=== PATIENT | male | born 1955 | race Caucasian/White ===

== ENCOUNTER 2022-02-23 00:21 | Inpatient (IN) ==
--- NOTE | 2022-02-23 00:45 | Emergency Department Note ---
Impression & Plan Acute UTI, Weakness, Fall Admit to the [facility] ED Provider Note NAME: TATUM STEWART AGE: 66 SEX: M ARRIVES VIA: Ambulance INFORMANT: ED PROVIDER(S): Nasreen Centeno DO CHIEF COMPLAINT: Fall and weakness PLAN: Disposition: Admit to [facility] Condition: Fair MEDICAL DECISION MAKING: This is a 66-year-old male patient with history of dementia who suffered a fall at home today. EMS was called and he was transported here. In route to the emergency department, the patient complained of some low back pain. Upon arrival here in the emergency department, the patient seemed to be more somnolent than usual according to the . She describes increasing lower extremity weakness over the past couple of days along with decreased oral intake. She states that he has been in bed mostly over the past 2 days which is unusual for him. CT scan of the brain was unremarkable. Laboratory studies were essentially negative except for evidence of urinary tract infection. The patient was treated with some IV crystalloid therapy for clinical dehydration and he was given a dose of IV Rocephin. Initial plan was to discharge the patient home with his on oral antibiotics but the patient seemed to have profound weakness and nursing staff did not feel comfortable that the patient could be safely discharged home with his . They felt he was at risk to fall again. I discussed the case with Dr. Coleman and he will evaluate the patient for further inpatient care. Triage Nursing notes reviewed and agree with them. Additional history obtained from EMS Prior medical records reviewed Vital Signs: reviewed and unremarkable Differential diagnosis: Head injury, dehydration, hyperglycemia, hypoglycemia, CVA, intracranial hemorrhage, UTI ER treatment provided: IV normal saline bolus IV Rocephin Diagnostics interpreted by me: ECG: Normal sinus rhythm at a rate of [address] segment elevation or signs of ischemia. There is no ectopy. Cardiac Monitoring: Normal sinus rhythm at 74 Laboratory studies: See below Imaging studies: As per stat rad CT HEAD: Mild cerebral atrophyand periventricular white matter lowdensityconsistent with chronic small vessel disease. There is no evidence of acute large vessel infarct or intracranial hemorrhage. The brain is otherwise unremarkable. The paranasal sinuses and mastoid air cells are normal. There is no skull fracture or scalp hematoma. Consultation(s): None HPI: 66/M arrives for evaluation of fall. EMS was called to this patient's house tonight because he fell to the floor in the bathroom. The states that over the past couple of days his lower extremities have become increasingly weak. She states that he has had decreased oral intake and has been in bed primarily over the past 2 days sleeping. This is unusual for him. However, she describes increased involuntary movements of his lower extremities and hips for which he has a follow-up appointment scheduled with neurology at [facility] on March 14. She also describes some fasciculations underneath of his skin that are increasing in frequency. ROS: See above HPI for pertinent positives & negatives. A total of 10 systems reviewed and were otherwise negative. PAST MEDICAL HISTORY:See Below PAST SURGICAL HISTORY:See Below FAMILY HISTORY:See Below SOCIAL HISTORY:See Below HOME MEDICATIONS:See list ALLERGIES:See list VITALS:See Below PHYSICAL EXAMINATION: HEENT: Head - normocephalic and atraumatic. Pupils are equal, round, and reactive to light. Extraocular eye muscles are intact and sclera are anicteric. Nose - moist nasal mucosa without discharge. Mouth -extremely dry buccal mucosa. Oropharynx is nonerythematous and there is no tonsillar exudate or edema noted. Neck: Supple; no JVD or cervical lymphadenopathy Heart: Regular rate and rhythm. There is a normal S1 and S2 with no murmurs, clicks, or gallops appreciated. Lungs: Clear to auscultation bilaterally with no wheezes, rales, or rhonchi. Abdomen: Soft, completely nontender, nondistended, with good bowel sounds. There are no palpable pulsatile masses or hepatosplenomegaly. There is no guarding, rigidity, or rebound noted. Extremities: No evidence of cyanosis, clubbing, or edema. There are easily pa lpable peripheral pulses. Neuro:The patient is extremely lethargic and easily falls asleep. He will open his eyes when you call his name. He will follow commands but slowly. He does move all 4 extremities. Skin: The patient has feces about his skin ED COURSE: Times/Reassessments: 0035: The patient was evaluated in room B7. Laboratory studies were drawn as above. The patient was bolused with IV normal saline solution. An order was placed for continuous cardiac monitoring. The patient was in a normal sinus rhythm at a rate of 74. A twelve-lead EKG was obtained. The patient will go for CT scan of the brain. A urine specimen was obtained. I reviewed the results of the CT and laboratory studies with the patient and his . The patient was given a dose of IV Rocephin. The initial plan was for the patient to go home but nursing staff had difficulty ambulating the patient as he was so weak. I then discussed the case with the [facility] hospitalist and they will evaluate for further inpatient care. Nasrene Centeno DO Past Med/Surg History Medical History (Updated 02/23/22 @ 05:43 by Nasreen Centeno DO) Cardiac defibrillator in place (2009) Cardiomyopathy NONISCHEMIC, S/P AICD PLACED IN 2009. Dementia IS THE PERSON WHOM TO SPEAK TO. STATES HE GETS VERY UPSET WITH SOMEONE ASKING QUESTIONS. BEHAVIORIAL VARIANCE FRONTAL TEMPORAL-F/U DR GONZALEZ; Essential tremor BOTH HANDS - STATES HAS DIFFICULTY HOLDING ONTO THINGS GERD (gastroesophageal reflux disease) History of colon polyps History of melanoma Left Arm Hyperlipidemia Hypertension ICD (implantable cardioverter-defibrillator) in place [employer]. LAST INTERROGATION 09/22/19. NORMAL FUNCTION. STABLE PACING AND SENSING THRESHOLDS. NO SHOCKS. Osteoarthritis Pacemaker (2009) Parkinsonism D/T FRONTAL DEMENTIA; SHUFFLES FEET WITH WALKING AND STUMBLES - USES WALKING STICK Postural hypotension STATES HE GETS DIZZY WHEN STANDING Surgical History (Updated 09/13/21 @ 09:15 by Debra Oscar, JENNIFER) History of anesthesia reaction PER PATIENT'S , PT GETS VERY CONFUSED AND IS SLOW TO WAKE UP History of cardiac cath MULTIPLE. NO STENTS. LAST HEART CATH ~2014. History of colonoscopy (08/20/18) History of left inguinal hernia repair (05/26/19) History of prostate biopsy (08/02/21) Dr. Francisco Gardiner at [facility] Hx of melanoma excision (2011) Left Arm Presence of combination internal cardiac defibrillator (ICD) and pacemaker (2009) PLACED 2009. [employer]. Family History (Updated 09/13/21 @ 09:17 by Debra Oscar, JENNIFER) Father , Passed at 60 Melanoma Mother , Passed Age 90's No problems noted. Sister No problems noted. Brother No problems noted. Son Melanoma, Onset Age: 22 pre-cancerous area removed Daughter No problems noted. 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 How many Children do You have: 2 other: patient with history of dementia Feels Safe at Home: Yes Childhood Exposure to Second-Hand Smoke: Yes caffeine: Yes (coffee in AM) during the past year weight has: remained stable Dental Care, Regularly: No Assistive Devices: Glasses Allergies Allergies Allergy/AdvReac Type Severity Reaction Status Date / Time latex Allergy Intermediate RASH Verified 02/23/22 00:49 haloperidol AdvReac Intermediate PSYCHOSIS Verified 02/23/22 00:49 lactose AdvReac Intermediate GI UPSET Verified 02/23/22 00:49 WITH MILK PRODUCTS midazolam AdvReac Intermediate PSYCHOSIS Verified 02/23/22 00:49 risperidone AdvReac Intermediate HALLUCINATI Verified 02/23/22 00:49 ON Home Meds Home Medications Medication Instructions Recorded Confirmed atorvastatin 20 mg tablet 20 mg PO QAM 08/16/18 02/23/22 clonazepam 1 mg tablet 1 mg PO QPM 08/16/18 02/23/22 gabapentin 100 mg capsule 200 mg PO HS 08/16/18 02/23/22 omeprazole 20 mg capsule,delayed 20 mg PO BID 08/16/18 02/23/22 release aspirin 325 mg tablet 325 mg PO QAM 05/01/19 02/23/22 metoprolol succinate 50 mg See Rx Instructions .ROUTE .COMPLEX 11/06/19 02/23/22 tablet,extended release 24 hr albuterol sulfate 90 mcg/actuation 2 puff INHALATION Q4H PRN g 09/13/21 02/23/22 aerosol inhaler (Ventolin HFA) divalproex 500 mg tablet,delayed 1,000 mg PO BID tab 09/13/21 02/23/22 release (Depakote) fluticasone 113 mcg-salmeterol 14 1 inh INHALATION BID 09/13/21 02/23/22 mcg/actuation breath activated powdr magnesium oxide 400 mg PO DAILY 09/13/21 02/23/22 metoprolol succinate 25 mg 25 mg PO DAILY 09/13/21 02/23/22 tablet,extended release 24 hr riboflavin (vitamin B2) 400 mg 400 mg PO DAILY 09/13/21 02/23/22 tablet vitamin B complex (B 1 tab PO DAILY 09/13/21 02/23/22 Complex-Vitamin B12) zinc gluconate 50 mg tablet 50 mg PO DAILY 09/13/21 02/23/22 Previous Rx's Medication Instructions Recorded leuprolide 7.5 mg (1 month) 7.5 mg SUBCUT ONCE #1 ea 01/12/22 subcutaneous syringe (Eligard) sulfamethoxazole 800 1 tab PO BID 7 Days #14 tab 02/23/22 mg-trimethoprim 160 mg tablet (Bactrim DS) Results & Data (ED) Vital Signs Vital Signs - 24 hr 02/23/22 00:14 02/23/22 01:32 02/23/22 03:38 Temperature 37.1 C Temperature Source Oral Pulse Rate 75 72 Pulse Rate [Apical] 74 Pulse Rhythm Regular Regular Pulse Strength Normal Respiratory Rate 22 16 24 Respiratory Effort / Characteristics Non-Labored Respiratory Depth Normal Respiratory Pattern Regular Blood Pressure 137/22 L Blood Pressure [Right Arm] 103/64 Blood Pressure Mean 60 Blood Pressure Mean [Right Arm] 77 Blood Pressure Position Sitting Pulse Oximetry 99 97 98 Oxygen Delivery Method Nasal Cannula Room Air Oxygen Flow Rate 2 Sepsis Recent Fever Within 48 Hours No Sepsis New/Unexplained Change in Mental Status N/A Sepsis Action Taken by Nursing No Action Required 02/23/22 05:00 02/23/22 05:58 Temperature 36.5 C Temperature Source Oral Pulse Rate Pulse Rate [Apical] 80 72 Pulse Rhythm Pulse Strength Respiratory Rate 16 21 Respiratory Effort / Characteristics Respiratory Depth Respiratory Pattern Blood Pressure Blood Pressure [Right Arm] 130/78 Blood Pressure Mean Blood Pressure Mean [Right Arm] 95 Blood Pressure Position Pulse Oximetry 96 94 Oxygen Delivery Method Nasal Cannula Nasal Cannula Oxygen Flow Rate 2 2 Sepsis Recent Fever Within 48 Hours Sepsis New/Unexplained Change in Mental Status Sepsis Action Taken by Nursing Laboratory Data Result diagrams: 02/23/22 02:28 02/23/22 02:28 Lab Results 02/23/22 02/23/22 02/23/22 Range/Units 02:28 02:28 02:28 WBC 5.88 (4.8-10.8) K/uL RBC 4.36 L (4.7-6.1) M/uL Hgb 13.9 L (14.0-18.0) g/dL Hct 41.3 L (42-52) % MCV 94.7 (80-100) fL MCH 31.9 (25-34) pg MCHC 33.7 (32-36) g/dL RDW Std Deviation 52.2 H (36.4-46.3) fL RDW Coeff of Gabi 15.1 H (11.5-14.5) % Plt Count 90 L (130-400) K/uL MPV 8.9 (7.4-10.4) fL Immature Gran % (Auto) 0.7 % Neut % (Auto) 64.1 % Lymph % (Auto) 10.2 % [place] % (Auto) 24.1 % Eos % (Auto) 0.7 % Baso % (Auto) 0.2 % Neut # (Auto) 3.77 (1.4-6.5) K/uL Lymph # (Auto) 0.60 L (1.2-3.4) K/uL [place] # (Auto) 1.42 H (0.11-0.59) K/uL Eos # (Auto) 0.04 (0-0.5) K/uL Baso # (Auto) 0.01 (0-0.2) K/uL Immature Gran # (Auto) 0.04 H (0.00-0.02) K/uL Platelet Estimate Decreased L (Normal) Sodium 145 (136-145) mmol/L Potassium 3.5 (3.5-5.1) mmol/L Chloride 108 H (98-107) mmol/L Carbon Dioxide 28 (21-32) mmol/L Anion Gap 9 (3-11) BUN 20 (6-23) mg/dl Creatinine 0.89 (0.6-1.4) mg/dl Est Cr Clr Drug Dosing 84.8 ml/min Est GFR ( Amer) 102.5 ml/min Est GFR (Non-Af Amer) 88.5 ml/min BUN/Creatinine Ratio 22.5 H (10-20) Glucose 89 (70-99(Fasting)) mg/dl Calcium 8.7 (8.5-10.1) mg/dl Total Bilirubin 0.5 (0.2-1.0) mg/dl AST 15 (13-39) U/L ALT 7 (7-52) U/L Alkaline Phosphatase 43 (34-104) U/L Total Protein 5.7 L (6.0-8.3) gm/dl Albumin 3.2 L (3.4-5.0) gm/dl Globulin 2.5 (2.5-4.0) gm/dl Albumin/Globulin Ratio 1.3 (0.9-2) TSH 1.272 (0.300-4.500) uIu/ml Urine Color Urine Appearance (Clear) Urine pH (4.5-7.5) Ur Specific [place] (1.000-1.030) Urine Protein (Negative) Urine Glucose (UA) (Negative) Urine Ketones (Negative) Urine Blood (Negative) Urine Nitrite (Negative) Urine Bilirubin (Negative) Urine Urobilinogen (Negative) Ur Leukocyte Esterase (Negative) Urine WBC (Auto) (0-5) /hpf Urine RBC (Auto) (0-4) /hpf U Hyaline Cast (Auto) (0-5) /lpf U Epithel Cells (Auto) (0-5) /lpf Urine Bacteria (Auto) (Negative) SARS-CoV-2, RNA, NAAT (NEGATIVE) 02/23/22 02/23/22 Range/Units 03:35 04:17 WBC (4.8-10.8) K/uL RBC (4.7-6.1) M/uL Hgb (14.0-18.0) g/dL Hct (42-52) % MCV (80-100) fL MCH (25-34) pg MCHC (32-36) g/dL RDW Std Deviation (36.4-46.3) fL RDW Coeff of Gabi (11.5-14.5) % Plt Count (130-400) K/uL MPV (7.4-10.4) fL Immature Gran % (Auto) % Neut % (Auto) % Lymph % (Auto) % [place] % (Auto) % Eos % (Auto) % Baso % (Auto) % Neut # (Auto) (1.4-6.5) K/uL Lymph # (Auto) (1.2-3.4) K/uL [place] # (Auto) (0.11-0.59) K/uL Eos # (Auto) (0-0.5) K/uL Baso # (Auto) (0-0.2) K/uL Immature Gran # (Auto) (0.00-0.02) K/uL Platelet Estimate (Normal) Sodium (136-145) mmol/L Potassium (3.5-5.1) mmol/L Chloride (98-107) mmol/L Carbon Dioxide (21-32) mmol/L Anion Gap (3-11) BUN (6-23) mg/dl Creatinine (0.6-1.4) mg/dl Est Cr Clr Drug Dosing ml/min Est GFR ( Amer) ml/min Est GFR (Non-Af Amer) ml/min BUN/Creatinine Ratio (10-20) Glucose (70-99(Fasting)) mg/dl Calcium (8.5-10.1) mg/dl Total Bilirubin (0.2-1.0) mg/dl AST (13-39) U/L ALT (7-52) U/L Alkaline Phosphatase (34-104) U/L Total Protein (6.0-8.3) gm/dl Albumin (3.4-5.0) gm/dl Globulin (2.5-4.0) gm/dl Albumin/Globulin Ratio (0.9-2) TSH (0.300-4.500) uIu/ml Urine Color Dark Yellow Urine Appearance Turbid A (Clear) Urine pH 6.0 (4.5-7.5) Ur Specific [place] 1.030 (1.000-1.030) Urine Protein 3+ H (Negative) Urine Glucose (UA) Negative (Negative) Urine Ketones 2+ H (Negative) Urine Blood 3+ H (Negative) Urine Nitrite Negative (Negative) Urine Bilirubin Negative (Negative) Urine Urobilinogen Negative (Negative) Ur Leukocyte Esterase 3+ H (Negative) Urine WBC (Auto) >30 H (0-5) /hpf Urine RBC (Auto) 10-30 H (0-4) /hpf U Hyaline Cast (Auto) 0 (0-5) /lpf U Epithel Cells (Auto) 10-20 H (0-5) /lpf Urine Bacteria (Auto) 4+ H (Negative) SARS-CoV-2, RNA, NAAT NEGATIVE (NEGATIVE) Administered Medications Discontinued Medications Sodium Chloride (Nss 1000ml) 500 mls @ 999 mls/hr IV .Q31M ONE Stop: 02/23/22 05:01 Last Infusion: 02/23/22 05:51 Dose: 0 mls/hr Documented by: [id number] Admin: 02/23/22 04:38 Dose: 999 mls/hr Documented by: [id number] Ceftriaxone Sodium (Rocephin) 1,000 mg in 50 mls @ 100 mls/hr IV NOW STA Stop: 02/23/22 05:00 Last Infusion: 02/23/22 05:13 Dose: 0 mls/hr Documented by: [id number] Admin: 02/23/22 04:38 Dose: 100 mls/hr Documented by: [id number] Discharge Plan Visit Data Chief Complaint: Fall Stated Complaint: FALL/BACK PAIN HX DEMENTIA ED Provider: Nasreen Centeno Discharge Problem: Acute UTI, Weakness, Fall Forms Stand Alone Forms: [facility] Prescriptions Prescriptions: New sulfamethoxazole-trimethoprim [Bactrim DS] 800-160 mg tablet 1 tab PO BID 7 Days Qty: 14 RF: 0 No Action vitamin B complex [B Complex-Vitamin B12] Tablet 1 tab PO DAILY RF: 0 fluticasone propion-salmeterol 113-14 mcg/actuation aerosol powdr breath activated 1 inh inhalation BID RF: 0 magnesium oxide 400 mg magnesium capsule 400 mg PO DAILY RF: 0 metoprolol succinate 25 mg tablet extended release 24 hr 25 mg PO DAILY RF: 0 riboflavin (vitamin B2) 400 mg tablet 400 mg PO DAILY RF: 0 zinc gluconate 50 mg tablet 50 mg PO DAILY RF: 0 albuterol sulfate [Ventolin HFA] 90 mcg/actuation HFA aerosol inhaler 2 puff inhalation Q4H PRN (Reason: Shortness Of Breath Or Wheezing) RF: 0 Eligard 7.5 mg (1 month) syringe 7.5 mg subcut ONCE Qty: 1 RF: 0 metoprolol succinate 50 mg Tablet Extended Release 24 Hr See Rx Instructions .ROUTE .COMPLEX RF: 0 atorvastatin 20 mg Tablet 20 mg PO QAM RF: 0 clonazepam 1 mg Tablet 1 mg PO QPM RF: 0 gabapentin 100 mg Capsule 200 mg PO HS RF: 0 omeprazole 20 mg Capsule,Delayed Release(Dr/Ec) 20 mg PO BID RF: 0 divalproex [Depakote] 500 mg tablet,delayed release (DR/EC) 1,000 mg PO BID RF: 0 aspirin 325 mg Tablet 325 mg PO QAM RF: 0 Referrals Referrals: Armani Chen MD [Primary Care Provider] - Discharge Problem: Fall Qualifiers: Encounter type: initial encounter Qualified Code(s): W19.XXXA - Unspecified fall, initial encounter
[2022-02-23 02:59] LABS: Basophils # (auto) 0.01 K/uL (0-0.2); Basophils % (auto) 0.2 %; Eosinophils # (auto) 0.04 K/uL (0-0.5); Eosinophils % (auto) 0.7 %; Hematocrit (blood only) 41.3 % (42-52); Hemoglobin 13.9 g/dL (14.0-18.0); Immature Granulocytes # (auto) 0.04 K/uL (0.00-0.02); Immature Granulocytes % (auto) 0.7 %; Lymphocytes % (auto) 10.2 %; Mean Corpuscular Hemoglobin 31.9 pg (25-34); Mean Corpuscular Hgb Conc 33.7 g/dL (32-36); Mean Corpuscular Volume 94.7 fL (80-100); Mean Platelet Volume 8.9 fL (7.4-10.4); Monocytes # (auto) 1.42 K/uL (0.11-0.59); Monocytes % (auto) 24.1 %; Neutrophils # (auto) 3.77 K/uL (1.4-6.5); Neutrophils % (auto) 64.1 %; Platelet Count 90 K/uL (130-400); Platelet Estimate Decreased (Normal); RDW Coefficient of Variation 15.1 % (11.5-14.5); RDW Standard Deviation 52.2 fL (36.4-46.3); Red Blood Count 4.36 M/uL (4.7-6.1); White Blood Count 5.88 K/uL (4.8-10.8)
[2022-02-23 03:18] LABS: Albumin Globulin Ratio 1.3 (0.9-2); Albumin Level 3.2 gm/dl (3.4-5.0); BUN Creatinine Ratio 22.5 (10-20); Bilirubin,Total 0.5 mg/dl (0.2-1.0); Calcium 8.7 mg/dl (8.5-10.1); Creatinine Clr Calc Pharmacy 84.8 ml/min; Est GFR (African American) 102.5 ml/min; Est GFR (Non-African American) 88.5 ml/min; Globulin 2.5 gm/dl (2.5-4.0); Potassium 3.5 mmol/L (3.5-5.1); Total Protein 5.7 gm/dl (6.0-8.3)
[2022-02-23 03:44] LABS: Appearance Urine Turbid (Clear); Bacteria Urine Automated 4+ (Negative); Bilirubin Urine Negative (Negative); Blood Urine 3+ (Negative); Color Urine Dark Yellow; Glucose Urine UA Negative (Negative); Ketones Urine 2+ (Negative); Leukocyte Esterase Urine 3+ (Negative); Nitrite Urine Negative (Negative); Protein Urine 3+ (Negative); Urobilinogen Urine Negative (Negative); WBC Urine Automated >30 /hpf (0-5)
[2022-02-23 03:56] LABS: Cast Urine Automated 0 /lpf (0-5)
[2022-02-23] MEDS ORDERED: cefTRIAXone SODIUM 1,000 MG/50 ML BAG IV STA (04:31)
[2022-02-23] MEDS ORDERED: SODIUM CHLORIDE 0.9% 1000ML 500 ML IV ONE (04:31)
--- NOTE | 2022-02-23 06:09 | History & Physical Report ---
Date of Service February 23, 2022 Assessment & Plan (1) Delirium: Plan: Delirium on dementia Multifactorial : Complicated UTI, history prostate cancer on Eligard, patient not septic, rule out obstructive uropathy given back pain complaints Diarrhea rule out C. difficile hx CHF (EF 55%, TTE 2020), patient on the dry side hx nonischemic cardiomyopathy/history of VT/sudden cardiac status post ICD COPD, lung status stable New onset anemia secondary to transient L GIB and hematuria symptoms from a few weeks ago past tobacco abuse Medical telemetry One-to-one nursing discretion Hold neuropsychotropic meds for now. Check valproic acid level before resuming home Rx Urine CS, Ceftriaxone CT abdomen pelvis RE back pain Stool C. difficile Anemia work-up, transfuse PRBC if hemoglobin less than 8 and or from symptomatic anemia PT OT eval DVT prophylaxis. SCDs Re: L GIB/hematuria DNR as per patient's prior directives as per , Ms. Jennifer Lauren. She requests updates from providers through [phone]. Text document was generated using Insync voice recognition software. It may contain grammatical or spelling errors. Kindly contact undersigned for clarification of any documentation item in question. History of Present Illness Chief Complaint: Fall, weakness, confusion Primary Care Provider: Armani Chen MD History obtained from patient, family, and records. Limited history from patient secondary to dementia. Medical history significant for CHF (EF 55%, TTE 2020), nonischemic cardiomyopathy/history of VT/sudden cardiac status post ICD, frontotemporal dementia, COPD, prostate cancer on Eligard, chronic thrombocytopenia, past tobacco abuse. Patient noted to be weak the last few days. More confused than usual as per . Loose stools with one episode of bloody bowel movement. Patient without abdominal pain as per . Complaining of back pain. Last night, patient had a fall at home. Patient was on the ground for about 5 to 10 minutes. At the ER, patient given IV ceftriaxone for UTI. Patient was about to be discharged home from the ER but was noted to be weak and unstable on his feet. 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 Allergies Allergy/AdvReac Type Severity Reaction Status Date / Time latex Allergy Intermediate RASH Verified 02/23/22 00:49 haloperidol AdvReac Intermediate PSYCHOSIS Verified 02/23/22 00:49 lactose AdvReac Intermediate GI UPSET Verified 02/23/22 00:49 WITH MILK PRODUCTS midazolam AdvReac Intermediate PSYCHOSIS Verified 02/23/22 00:49 risperidone AdvReac Intermediate HALLUCINATI Verified 02/23/22 00:49 ON Home Medications Medication Instructions Recorded Confirmed Type atorvastatin 20 mg tablet 20 mg PO QAM 08/16/18 02/23/22 History clonazepam 1 mg tablet 1 mg PO QPM 08/16/18 02/23/22 History gabapentin 100 mg capsule 200 mg PO HS 08/16/18 02/23/22 History omeprazole 20 mg capsule,delayed 20 mg PO BID 08/16/18 02/23/22 History release metoprolol succinate 50 mg See Rx Instructions .ROUTE .COMPLEX 11/06/19 02/23/22 History tablet,extended release 24 hr albuterol sulfate 90 mcg/actuation 2 puff INHALATION Q4H PRN g 09/13/21 02/23/22 History aerosol inhaler (Ventolin HFA) divalproex 500 mg tablet,delayed 1,000 mg PO BID tab 09/13/21 02/23/22 History release (Depakote) fluticasone 113 mcg-salmeterol 14 1 inh INHALATION BID 09/13/21 02/23/22 History mcg/actuation breath activated powdr magnesium oxide 400 mg PO DAILY 09/13/21 02/23/22 History metoprolol succinate 25 mg 25 mg PO DAILY 09/13/21 02/23/22 History tablet,extended release 24 hr riboflavin (vitamin B2) 400 mg 400 mg PO DAILY 09/13/21 02/23/22 History tablet vitamin B complex (B 1 tab PO DAILY 09/13/21 02/23/22 History Complex-Vitamin B12) zinc gluconate 50 mg tablet 50 mg PO DAILY 09/13/21 02/23/22 History leuprolide 7.5 mg (1 month) 7.5 mg SUBCUT ONCE #1 ea 01/12/22 02/23/22 Rx subcutaneous syringe (Eligard) sulfamethoxazole 800 1 tab PO BID 7 Days #14 tab 02/23/22 Rx mg-trimethoprim 160 mg tablet (Bactrim DS) Past Med/Surg History Medical History (Updated 02/23/22 @ 07:36 by Jesus Mcclendon MD) Cardiac defibrillator in place (2009) Cardiomyopathy NONISCHEMIC, S/P AICD PLACED IN 2009. Dementia IS THE PERSON WHOM TO SPEAK TO. STATES HE GETS VERY UPSET WITH SOMEONE ASKING QUESTIONS. BEHAVIORIAL VARIANCE FRONTAL TEMPORAL-F/U DR GONZALEZ; Essential tremor BOTH HANDS - STATES HAS DIFFICULTY HOLDING ONTO THINGS GERD (gastroesophageal reflux disease) History of colon polyps History of melanoma Left Arm Hyperlipidemia Hypertension ICD (implantable cardioverter-defibrillator) in place [employer]. LAST INTERROGATION 09/22/19. NORMAL FUNCTION. STABLE PACING AND SENSING THRESHOLDS. NO SHOCKS. Osteoarthritis Pacemaker (2009) Parkinsonism D/T FRONTAL DEMENTIA; SHUFFLES FEET WITH WALKING AND STUMBLES - USES WALKING STICK Postural hypotension STATES HE GETS DIZZY WHEN STANDING Surgical History (Updated 09/13/21 @ 09:15 by Debra Oscar RN) History of anesthesia reaction PER PATIENT'S , PT GETS VERY CONFUSED AND IS SLOW TO WAKE UP History of cardiac cath MULTIPLE. NO STENTS. LAST HEART CATH ~2014. History of colonoscopy (08/20/18) History of left inguinal hernia repair (05/26/19) History of prostate biopsy (08/02/21) Dr. Francisco Gardiner at [facility] Hx of melanoma excision (2011) Left Arm Presence of combination internal cardiac defibrillator (ICD) and pacemaker (2009) PLACED 2009. [employer]. Family History (Updated 09/13/21 @ 09:17 by Debra Oscar RN) Father , Passed at 60 Melanoma Mother , Passed Age 90's No problems noted. Sister No problems noted. Brother No problems noted. Son Melanoma, Onset Age: 22 pre-cancerous area removed Daughter No problems noted. 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 How many Children do You have: 2 other: patient with history of dementia Feels Safe at Home: Yes Childhood Exposure to Second-Hand Smoke: Yes caffeine: Yes (coffee in AM) during the past year weight has: remained stable Dental Care, Regularly: No Assistive Devices: Glasses Review of Systems Review of Systems: Could not be reliably obtained secondary to dementia Physical Exam Physical Exam: GENERAL: Demented, no respiratory distress SKIN: Normal color, warm HEENT: Bespectacled, pink palpebral conjunctivae, no ptosis, dry buccal mucosa NECK : Supple, no tenderness CHEST : Decreased breath sounds, no tenderness HEART : RRR, no obvious murmurs ABDOMEN: Some distention, nontender EXTREMITIES : No LE swelling/tenderness, no other conspicuous deformities noted NEUROLOGIC : Demented, no facial asymmetry gait and stance not assessed Results & Data Results & Data ([facility]) Vital Signs (Past 12 Hours) Vital Signs Temp Pulse Pulse Resp BP BP Pulse Ox 02/23/22 05:58 36.5 C 72 21 130/78 94 02/23/22 05:00 80 16 96 02/23/22 03:38 74 24 103/64 98 02/23/22 01:32 72 16 97 02/23/22 00:14 37.1 C 75 22 137/22 L 99 Laboratory Results Laboratory Results WBC 5.88 K/uL (4.8-10.8) 02/23/22 02:28 RBC 4.36 M/uL (4.7-6.1) L 02/23/22 02:28 Hgb 13.9 g/dL (14.0-18.0) L 02/23/22 02:28 Hct 41.3 % (42-52) L 02/23/22 02:28 MCV 94.7 fL (80-100) 02/23/22 02:28 MCH 31.9 pg (25-34) 02/23/22 02:28 MCHC 33.7 g/dL (32-36) 02/23/22 02:28 RDW Std Deviation 52.2 fL (36.4-46.3) H 02/23/22 02:28 RDW Coeff of Gabi 15.1 % (11.5-14.5) H 02/23/22 02:28 Plt Count 90 K/uL (130-400) L 02/23/22 02:28 MPV 8.9 fL (7.4-10.4) 02/23/22 02:28 Immature Gran % (Auto) 0.7 % 02/23/22 02:28 Neut % (Auto) 64.1 % 02/23/22 02:28 Lymph % (Auto) 10.2 % 02/23/22 02:28 [place] % (Auto) 24.1 % 02/23/22 02:28 Eos % (Auto) 0.7 % 02/23/22 02:28 Baso % (Auto) 0.2 % 02/23/22 02:28 Neut # (Auto) 3.77 K/uL (1.4-6.5) 02/23/22 02: Lymph # (Auto) 0.60 K/uL (1.2-3.4) L 02/23/22 02:28 [place] # (Auto) 1.42 K/uL (0.11-0.59) H 02/23/22 02:28 Eos # (Auto) 0.04 K/uL (0-0.5) 02/23/22 02:28 Baso # (Auto) 0.01 K/uL (0-0.2) 02/23/22 02:28 Immature Gran # (Auto) 0.04 K/uL (0.00-0.02) H 02/23/22 02:28 Platelet Estimate Decreased (Normal) L 02/23/22 02:28 Sodium 145 mmol/L (136-145) 02/23/22 02:28 Potassium 3.5 mmol/L (3.5-5.1) 02/23/22 02:28 Chloride 108 mmol/L (98-107) H 02/23/22 02:28 Carbon Dioxide 28 mmol/L (21-32) 02/23/22 02:28 Anion Gap 9 (3-11) 02/23/22 02:28 BUN 20 mg/dl (6-23) 02/23/22 02:28 Creatinine 0.89 mg/dl (0.6-1.4) 02/23/22 02:28 Est Cr Clr Drug Dosing 84.8 ml/min 02/23/22 02:28 Est GFR ( Amer) 102.5 ml/min 02/23/22 02:28 Est GFR (Non-Af Amer) 88.5 ml/min 02/23/22 02:28 BUN/Creatinine Ratio 22.5 (10-20) H 02/23/22 02:28 Glucose 89 mg/dl (70-99(Fasting)) 02/23/22 02:28 Calcium 8.7 mg/dl (8.5-10.1) 02/23/22 02:28 Total Bilirubin 0.5 mg/dl (0.2-1.0) 02/23/22 02:28 AST 15 U/L (13-39) 02/23/22 02:28 ALT 7 U/L (7-52) 02/23/22 02:28 Alkaline Phosphatase 43 U/L (34-104) 02/23/22 02:28 Total Protein 5.7 gm/dl (6.0-8.3) L 02/23/22 02:28 Albumin 3.2 gm/dl (3.4-5.0) L 02/23/22 02:28 Globulin 2.5 gm/dl (2.5-4.0) 02/23/22 02:28 Albumin/Globulin Ratio 1.3 (0.9-2) 02/23/22 02:28 TSH 1.272 uIu/ml (0.300-4.500) 02/23/22 02:28 Urine Color Dark Yellow 02/23/22 03:35 Urine Appearance Turbid (Clear) A 02/23/22 03:35 Urine pH 6.0 (4.5-7.5) 02/23/22 03:35 Ur Specific Hasty 1.030 (1.000-1.030) 02/23/22 03:35 Urine Protein 3+ (Negative) H 02/23/22 03:35 Urine Glucose (UA) Negative (Negative) 02/23/22 03:35 Urine Ketones 2+ (Negative) H 02/23/22 03:35 Urine Blood 3+ (Negative) H 02/23/22 03:35 Urine Nitrite Negative (Negative) 02/23/22 03:35 Urine Bilirubin Negative (Negative) 02/23/22 03:35 Urine Urobilinogen Negative (Negative) 02/23/22 03:35 Ur Leukocyte Esterase 3+ (Negative) H 02/23/22 03:35 Urine WBC (Auto) >30 /hpf (0-5) H 02/23/22 03:35 Urine RBC (Auto) 10-30 /hpf (0-4) H 02/23/22 03:35 U Hyaline Cast (Auto) 0 /lpf (0-5) 02/23/22 03:35 U Epithel Cells (Auto) 10-20 /lpf (0-5) H 02/23/22 03:35 Urine Bacteria (Auto) 4+ (Negative) H 02/23/22 03:[address] head initial read: Mild cerebral atrophyand periventricular white matter lowdensityconsistent with chronic small vessel disease. There is no evidence of acute large vessel infarct or intracranial hemorrhage. The brain is otherwise unremarkable. The paranasal sinuses and mastoid air cells are normal. There is no skull fracture or scalp hematoma. Chest x-ray as per my interpretation pacemaker, no congestion EKG as per interpretation: Rate 70, NSR, LAD, LAFB, T wave abnormalities inferior leads
--- NOTE | 2022-02-23 07:05 | XRay Report ---
XR chest 1V portable CLINICAL HISTORY: weakness TECHNIQUE: Single frontal radiograph of the chest was obtained. Comparison: None available at the time of this dictation. FINDINGS: Pacemaker defibrillator is seen. The cardiomediastinal silhouette is normal. The lungs are clear. No evidence of pleural effusion or pneumothorax. IMPRESSION: No acute chest disease. ACT 112: Negative or not required by law. Electronically signed by: Caesar Early M.D. 02/23/2022 7:04 AM
--- NOTE | 2022-02-23 07:18 | CT Scan Report ---
CT SCAN OF THE BRAIN WITHOUT IV CONTRAST CLINICAL HISTORY: Generalized weakness. Fall. COMPARISON STUDY: No priors. TECHNIQUE: Unenhanced axial CT scan of the brain is performed from the vertex to the skull base. A do se lowering technique was utilized adhering to the principles of ALARA. CT DOSE: 537.48 mGy.cm FINDINGS: Brain parenchyma: There are age-related involutional changes noting mild to moderate subcortical and periventricular microangiopathic change. There is no hemorrhage, mass effect, or evidence of acute t erritorial ischemia by CT criteria. Carl-white matter differentiation is preserved. No extra-axial fl uid collection is seen. Ventricles, sulci, cisterns: Prominent secondary to involutional change. Intracranial vasculature: There is atherosclerotic calcification of the cavernous carotid and vertebr al arteries. Calvarium: The skeletal structures are osteopenic. No depressed calvarial fracture is identified. Sinuses and mastoids: The visualized paranasal sinuses are clear. The mastoid air cells are well pneu matized. Orbits: The bony orbits are grossly intact. IMPRESSION: There is no hemorrhage, mass effect, or evidence of acute territorial ischemia by CT cande muñiz. ACT 112: Negative or not required by law. Electronically signed by: Leo Chris M.D. 02/23/2022 7:17 AM
[2022-02-23 07:29] LABS: Hematocrit (blood only) 41.4 % (42-52); Reticulocyte % 1.6 % (0.5-2.0); Reticulocytes # 0.07 10^6/uL (0.02-0.10)
[2022-02-23 08:02] LABS: Folate (Folic Acid) > 22.30 ng/ml (>5.38)
[2022-02-23 08:03] LABS: Vitamin B12 654 pg/ml (180-914)
--- NOTE | 2022-02-23 09:40 | CT Scan Report ---
CT OF THE ABDOMEN AND PELVIS WITHOUT CONTRAST CLINICAL HISTORY: Back pain. COMPARISON STUDY: CT of the abdomen and pelvis August 17, 2021. TECHNIQUE: Axial images of the abdomen and pelvis were obtained without IV contrast. Images were revi ewed in the axial, sagittal, and coronal planes. Automated exposure control was utilized for the cirilo dy. A dose lowering technique was utilized adhering to the principles of ALARA. FINDINGS: Lung bases are unremarkable. Pacer lead is partially imaged. There is bilateral gynecomasti a. No pneumatosis, free air or portal venous gas is present. Evaluation of the abdomen and pelvis is suboptimal on this unenhanced exam. Several low-attenuation attenuation hepatic lesions favor cysts. The spleen, adrenal glands and pancreas are unremarkable. Water attenuation bilateral renal lesions l ikely reflect cysts. These are suboptimally assessed on this unenhanced exam. No hydronephrosis is pr esent. No renal, ureteral or bladder calculi are present. Note is made of moderate bladder wall thick ening with adjacent fluid and stranding. No evidence for a bowel obstruction. The appendix is normal. No abdominal or pelvic lymphadenopathy is present. Bilateral inguinal hernias are noted. No acute fr acture or suspicious lesion within the lumbar spine. Multilevel degenerative changes within the lumba r spine are most pronounced at L5-S1 level. Central canal and neural foramen are suboptimally assesse d by CT. IMPRESSION: 1. No urinary calculi or hydronephrosis. 2. Moderate bladder wall thickening with adjacent fluid and stranding. These findings are nonspecific and could be correlated with urinalysis to exclude cystitis. 3. No acute lumbar spine fracture. Multilevel degenerative changes within the lumbar spine. 4. No bowel obstruction. ACT 112: Negative or not required by law. Electronically signed by: Douglas Zuniga M.D. 02/23/2022 9:37 AM
[2022-02-23] MEDS ORDERED: NON-FORMULARY MEDICATION (Riboflavin (Vitamin B2) 400 mg tablet) PO SCH (09:42)
--- NOTE | 2022-02-23 09:46 | Electrocardiogram Report ---
Test Reason : Blood Pressure : / mmHG Vent. Rate : 072 BPM Atrial Rate : 072 BPM P-R Int : 136 ms QRS Dur : 084 ms QT Int : 386 ms P-R-T Axes : 067 -37 019 degrees QTc Int : 422 ms Poor data quality, interpretation may be adversely affected Normal sinus rhythm Left axis deviation Abnormal ECG No previous ECGs available Confirmed by Lauro Wing ([id number]) on 02/23/2022 9:46:38 AM Referred By: REFERRED SELF Confirmed By:Lauro Wing
[2022-02-23] MEDS: ATORVASTATIN 20 MG TAB PO SCH (10:36)
[2022-02-23] MEDS: PANTOprazole 40 MG TAB PO SCH ×2 (10:36→20:37)
[2022-02-23] MEDS: METOPROLOL SUCC 50MG EXT REL TAB PO SCH ×2 (10:36→20:37)
[2022-02-23] MEDS: METOPROLOL SUCC 25MG EXT REL TAB PO SCH (10:36)
[2022-02-23] MEDS: VITAMIN B COMPLEX TAB PO SCH (10:36)
[2022-02-23] MEDS: FLUTICASONE/VILANTEROL 100/25MCG 14 PUFFS/INHALER INH SCH (10:39)
[2022-02-23] MEDS: ACETAMINOPHEN 325 MG TAB PO PRN (11:13)
[2022-02-23] MEDS: PHENAZOPYRIDINE HCL 200 MG TAB PO PRN ×2 (11:13→20:37)
--- NOTE | 2022-02-23 20:28 | Communication Note ---
Date of Service: February 23, 2022 Patient was seen and examined for follow-up follow-up of weakness. Lying In bed with no acute distress, resting comfortable with at bedside. said patient has a good appetite today, but continue to feel weak. No chest pain, palpitation, dizziness and shortness of breath. CT abdomen and pelvics showed no urinary calculi or hydronephrosis and moderate bladder wall thickening with adjacent fluid and stranding. Weakness may be due to UTI. Currently on IV ceftriaxone. Follow-up urine culture. Patient had a low-grade fever. Will check blood culture if continues to be febrile. . Will monitor closely. Continue PT/OT eval. Fall precaution. MD Arlette
[2022-02-24] MEDS: DIVALPROEX DELAY RELEASE 500 MG TAB PO SCH ×3 (00:41→20:42)
[2022-02-24] MEDS: ACETAMINOPHEN 325 MG TAB PO PRN ×3 (01:05→22:22)
[2022-02-24] MEDS: cefTRIAXone SODIUM 2,000 MG in DEXTROSE 5% 50 ML IV SCH (06:23)
[2022-02-24 06:42] LABS: Hemoglobin 13.1 g/dL (14.0-18.0); Mean Corpuscular Hemoglobin 32.6 pg (25-34); Mean Corpuscular Hgb Conc 34.5 g/dL (32-36); Mean Corpuscular Volume 94.5 fL (80-100); RDW Coefficient of Variation 14.9 % (11.5-14.5); RDW Standard Deviation 51.9 fL (36.4-46.3); Red Blood Count 4.02 M/uL (4.7-6.1); White Blood Count 7.23 K/uL (4.8-10.8)
[2022-02-24 06:45] LABS: Platelet Count 92 K/uL (130-400)
[2022-02-24 07:03] LABS: BUN Creatinine Ratio 22.1 (10-20); Calcium 8.7 mg/dl (8.5-10.1); Creatinine Clr Calc Pharmacy 79.4 ml/min; Est GFR (African American) 95.6 ml/min; Est GFR (Non-African American) 82.5 ml/min; Potassium 3.4 mmol/L (3.5-5.1)
[2022-02-24 07:19] LABS: Basophils # (auto) 0.01 K/uL (0-0.2); Basophils % (auto) 0.1 %; Eosinophils # (auto) 0.01 K/uL (0-0.5); Eosinophils % (auto) 0.1 %; Immature Granulocytes # (auto) 0.03 K/uL (0.00-0.02); Immature Granulocytes % (auto) 0.4 %; Lymphocytes # (auto) 1.62 K/uL (1.2-3.4); Lymphocytes % (auto) 22.4 %; Monocytes # (auto) 0.95 K/uL (0.11-0.59); Monocytes % (auto) 13.1 %; Neutrophils # (auto) 4.61 K/uL (1.4-6.5); Neutrophils % (auto) 63.9 %
[2022-02-24] MEDS: FLUTICASONE/VILANTEROL 100/25MCG 14 PUFFS/INHALER INH SCH (09:01)
[2022-02-24] MEDS: ATORVASTATIN 20 MG TAB PO SCH (09:02)
[2022-02-24] MEDS: PANTOprazole 40 MG TAB PO SCH ×2 (09:02→20:42)
[2022-02-24] MEDS: METOPROLOL SUCC 50MG EXT REL TAB PO SCH ×2 (09:02→20:41)
[2022-02-24] MEDS: VITAMIN B COMPLEX TAB PO SCH (09:02)
[2022-02-24] MEDS: METOPROLOL SUCC 25MG EXT REL TAB PO SCH (09:03)
[2022-02-24] MEDS ORDERED: POTASSIUM CHLORIDE CRTAB 20 MEQ TABCR PO STA (09:25)
[2022-02-24] MEDS ORDERED: KETOROLAC TROMETHAMINE 15 MG/ML VIAL IV ONE (15:01)
[2022-02-24] MEDS ORDERED: POTASSIUM CHLORIDE 10 MEQ TABCR PO STA (15:01)
[2022-02-24] MEDS ORDERED: MAGNESIUM OXIDE 400 MG TAB PO STA (15:03)
--- NOTE | 2022-02-24 18:11 | Hospitalist Progress Note ---
Date of Service February 24, 2022 Assessment & Plan (1) Weakness: (2) Fall: Plan: Present on admission with fall associated with worsening weakness Possible related to UTI CT head showed no acute intracranial abnormality Continue PT/OT Fall precaution clinically improved significantly Hypokalemia Possible related to diarrhea and poor oral intake Potassium 3.4 today K replaced Abnormal UA Currently on IV ceftriaxone Urine culture grew pinpoint Will follow culture Dementia is also admitted in sharing her home with the patient. That will help with the familiar face to reduce the risk of hospital associated delirium Continue monitor closely Diarrhea Stool for C. difficile negative CT abd/pelvis showed no bowel obstruction Currently on IV fluid, will discontinue Resolved Urinary retention Possible related with history of prostate cancer CT abdomen and pelvis showed no hydronephrosis. Moderate bladder wall thickening with adjacent fluid and stranding Carrillo catheter placed Continue monitor History prostate cancer on Eligard, patient not septic, rule out obstructive uropathy given back pain complaints Diarrhea rule out C. difficile Hx nonischemic cardiomyopathy/history of VT/sudden cardiac status post ICD Continue statin, and metoprolol Stable DVT prophylaxis. SCDs due to hematuria from the Carrillo catheter CODE STATUS DNR contact number: [phone]. Admission and Anticipated Discharge Date Admission Date: February 23, 2022 Subjective Patient was seen and examined for follow-up of weakness Lying in bed with no acute distress with also admitted share the same room with him Patient is more awake today He was able to participate in therapy and said he did well He has been voided very little and complaint with discomfort in his penis Denies any chest pain, palpitation, dizziness, shortness of breath. Review of Systems Review of Systems: All systems reviewed & are unremarkable except as noted in Subjective Physical Exam Physical Exam: General- No acute distress Head- atraumatic Eyes- PERRL, EOMI, ENT- oropharynx clear Neck- supple, no JVD Lungs- clear to auscultation Heart- regular rhythm; no murmur Abdomen- normal bowel sounds, soft, nontender Extremities- no calf tenderness Neuro- alert, oriented x 3; PERRL, EOMI; no facial palsy; no dysarthria Skin- warm & dry Results & Data Results & [facility] ([facility]) Vital Signs (Past 12 Hours) Vital Signs Temp Pulse Pulse Resp BP BP Pulse Ox 02/24/22 15:49 87 04/08/22 14:54 37.0 C 65 20 109/75 91 02/24/22 11:31 36.5 C 75 20 101/63 94 02/24/22 11:25 76 02/24/22 08:53 87 02/24/22 07:26 36.5 C 72 18 98/59 L 97 (1) Fall Encounter type: initial encounter Qualified Code(s): W19.XXXA - Unspecified fall, initial encounter
[2022-02-25] MEDS: PHENAZOPYRIDINE HCL 200 MG TAB PO PRN ×3 (00:07→12:01)
[2022-02-25] MEDS ORDERED: KETOROLAC TROMETHAMINE 15 MG/ML VIAL IV ONE (02:28)
[2022-02-25] MEDS: cefTRIAXone SODIUM 2,000 MG in DEXTROSE 5% 50 ML IV SCH (04:45)
[2022-02-25 07:05] LABS: Hematocrit (blood only) 38.7 % (42-52); Hemoglobin 13.6 g/dL (14.0-18.0); Mean Corpuscular Hemoglobin 32.9 pg (25-34); Mean Corpuscular Hgb Conc 35.1 g/dL (32-36); Mean Corpuscular Volume 93.7 fL (80-100); Mean Platelet Volume 8.9 fL (7.4-10.4); Platelet Count 104 K/uL (130-400); RDW Coefficient of Variation 14.8 % (11.5-14.5); RDW Standard Deviation 50.9 fL (36.4-46.3); Red Blood Count 4.13 M/uL (4.7-6.1); White Blood Count 4.97 K/uL (4.8-10.8)
[2022-02-25 08:07] LABS: BUN Creatinine Ratio 24.7 (10-20); Calcium 8.7 mg/dl (8.5-10.1); Creatinine Clr Calc Pharmacy 81.1 ml/min; Est GFR (African American) 98.1 ml/min; Est GFR (Non-African American) 84.6 ml/min; Potassium 3.3 mmol/L (3.5-5.1)
[2022-02-25] MEDS ORDERED: POTASSIUM CHLORIDE 10 MEQ TABCR PO STA (08:17)
[2022-02-25] MEDS: ACETAMINOPHEN 325 MG TAB PO PRN ×2 (08:44→12:01)
[2022-02-25] MEDS: ATORVASTATIN 20 MG TAB PO SCH (08:44)
[2022-02-25] MEDS: VITAMIN B COMPLEX TAB PO SCH (08:44)
[2022-02-25] MEDS: METOPROLOL SUCC 25MG EXT REL TAB PO SCH (08:45)
[2022-02-25] MEDS: DIVALPROEX DELAY RELEASE 500 MG TAB PO SCH (08:45)
[2022-02-25] MEDS: FLUTICASONE/VILANTEROL 100/25MCG 14 PUFFS/INHALER INH SCH (08:45)
[2022-02-25] MEDS: METOPROLOL SUCC 50MG EXT REL TAB PO SCH (08:45)
[2022-02-25] MEDS: PANTOprazole 40 MG TAB PO SCH (08:45)
[2022-02-25 11:41] VITALS: PULSE 75; TEMP 97.7; O2SAT 97
[2022-02-25 15:54] VITALS: BP 155/73
--- NOTE | 2022-02-28 10:45 | Discharge Summary ---
Date of Service February 25, 2022 Admission HPI Per Admitting Provider History obtained from patient, family, and records. Limited history from patient secondary to dementia. Medical history significant for CHF (EF 55%, TTE 2020), nonischemic cardiomyopathy/history of VT/sudden cardiac status post ICD, frontotemporal dementia, COPD, prostate cancer on Eligard, chronic thrombocytopenia, past tobacco abuse. Patient noted to be weak the last few days. More confused than usual as per . Loose stools with one episode of bloody bowel movement. Patient without abdominal pain as per . Complaining of back pain. Last night, patient had a fall at home. Patient was on the ground for about 5 to 10 minutes. At the ER, patient given IV ceftriaxone for UTI. Patient was about to be discharged home from the ER but was noted to be weak and unstable on his feet. 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 Admission Exam Per Admitting Provider GENERAL: Demented, no respiratory distress SKIN: Normal color, warm HEENT: Bespectacled, pink palpebral conjunctivae, no ptosis, dry buccal mucosa NECK : Supple, no tenderness CHEST : Decreased breath sounds, no tenderness HEART : RRR, no obvious murmurs ABDOMEN: Some distention, nontender EXTREMITIES : No LE swelling/tenderness, no other conspicuous deformities noted NEUROLOGIC : Demented, no facial asymmetry gait and stance not assessed Principal Diagnosis Weakness: Fall: Hypokalemia Abnormal urine Dementia Diarrhea Urinary retention History prostate cancer Discharge Exam General- No acute distress Head- atraumatic Eyes- PERRL, EOMI, ENT- oropharynx clear Neck- supple, no JVD Lungs- clear to auscultation Heart- regular rhythm; no murmur Abdomen- normal bowel sounds, soft, nontender Extremities- no calf tenderness Neuro- alert, oriented x 3; PERRL, EOMI; no facial palsy; no dysarthria Skin- warm & dry Discharge Data Allergies Allergy/AdvReac Type Severity Reaction Status Date / Time latex Allergy Intermediate RASH Verified 02/23/22 00:49 haloperidol AdvReac Intermediate PSYCHOSIS Verified 02/23/22 00:49 lactose AdvReac Intermediate GI UPSET Verified 02/23/22 00:49 WITH MILK PRODUCTS midazolam AdvReac Intermediate PSYCHOSIS Verified 02/23/22 00:49 risperidone AdvReac Intermediate HALLUCINATI Verified 02/23/22 00:49 ON Consultations 02/23/22 05:47 ED Decision to Admit Stat Ordered Studies 02/23/22 01:04 CT head/brain wo con Urgent 02/23/22 06:41 CT abd pelvis wo con Urgent CT OF THE ABDOMEN AND PELVIS WITHOUT CONTRAST CLINICAL HISTORY: Back pain. COMPARISON STUDY: CT of the abdomen and pelvis August 17, 2021. TECHNIQUE: Axial images of the abdomen and pelvis were obtained without IV contrast. Images were reviewed in the axial, sagittal, and coronal planes. Automated exposure control was utilized for the study. A dose lowering technique was utilized adhering to the principles of ALARA. FINDINGS: Lung bases are unremarkable. Pacer lead is partially imaged. There is bilateral gynecomastia. No pneumatosis, free air or portal venous gas is present. Evaluation of the abdomen and pelvis is suboptimal on this unenhanced exam. Several low-attenuation attenuation hepatic lesions favor cysts. The spleen, adrenal glands and pancreas are unremarkable. Water attenuation bilateral renal lesions likely reflect cysts. These are suboptimally assessed on this unenhanced exam. No hydronephrosis is present. No renal, ureteral or bladder calculi are present. Note is made of moderate bladder wall thickening with adjacent fluid and stranding. No evidence for a bowel obstruction. The appendix is normal. No abdominal or pelvic lymphadenopathy is present. Bilateral inguinal hernias are noted. No acute fracture or suspicious lesion within the lumbar spine. Multilevel degenerative changes within the lumbar spine are most pronounced at L5-S1 level. Central canal and neural foramen are suboptimally assessed by CT. IMPRESSION: 1. No urinary calculi or hydronephrosis. 2. Moderate bladder wall thickening with adjacent fluid and stranding. These findings are nonspecific and could be correlated with urinalysis to exclude cystitis. 3. No acute lumbar spine fracture. Multilevel degenerative changes within the lumbar spine. 4. No bowel obstruction. ACT 112: Negative or not required by law. Electronically signed by: Douglas Zuniga M.D. 02/23/2022 9:37 AM Dictated:02/23/22 0916 Transcribed: 02/23/[address] SCAN OF THE BRAIN WITHOUT IV CONTRAST CLINICAL HISTORY: Generalized weakness. Fall. COMPARISON STUDY: No priors. TECHNIQUE: Unenhanced axial CT scan of the brain is performed from the vertex to the skull base. A dose lowering technique was utilized adhering to the principles of ALARA. CT DOSE: 537.48 mGy.cm FINDINGS: Brain parenchyma: There are age-related involutional changes noting mild to moderate subcortical and periventricular microangiopathic change. There is no hemorrhage, mass effect, or evidence of acute territorial ischemia by CT criteria. Carl-white matter differentiation is preserved. No extra-axial fluid collection is seen. Ventricles, sulci, cisterns: Prominent secondary to involutional change. Intracranial vasculature: There is atherosclerotic calcification of the cavernous carotid and vertebral arteries. Calvarium: The skeletal structures are osteopenic. No depressed calvarial fracture is identified. Sinuses and mastoids: The visualized paranasal sinuses are clear. The mastoid air cells are well pneumatized. Orbits: The bony orbits are grossly intact. IMPRESSION: There is no hemorrhage, mass effect, or evidence of acute territorial ischemia by CT criteria. ACT 112: Negative or not required by law. Electronically signed by: Leo Chris M.D. 02/23/2022 7:17 AM Dictated:02/23/22714 Transcribed: 02/23/22714 XR chest 1V portable CLINICAL HISTORY: weakness TECHNIQUE: Single frontal radiograph of the chest was obtained. Comparison: None available at the time of this dictation. FINDINGS: Pacemaker defibrillator is seen. The cardiomediastinal silhouette is normal. The lungs are clear. No evidence of pleural effusion or pneumothorax. IMPRESSION: No acute chest disease. ACT 112: Negative or not required by law. Electronically signed by: Caesar Early M.D. 02/23/2022 7:04 AM Dictated:02/23/22702 Transcribed: 02/23/22702 Hospital Course (1) Weakness: (2) Fall: Present on admission with fall associated with worsening weakness Possible related to UTI CT head showed no acute intracranial abnormality Continue PT/OT Fall precaution clinically improved significantly Hypokalemia Possible related to diarrhea and poor oral intake Potassium 3.3 today K replaced Abnormal UA Currently on IV ceftriaxone Urine culture grew multiple organisms Since pt was febrile and immunocompromise, will complete the course of the abx Will discharge on Keflex PO Dementia is also admitted in sharing her home with the patient. That will help with the familiar face to reduce the risk of hospital associated delirium Continue monitor closely Diarrhea Stool for C. difficile negative CT abd/pelvis showed no bowel obstruction Received IVF Resolved Urinary retention Possible related with history of prostate cancer CT abdomen and pelvis showed no hydronephrosis. Moderate bladder wall thickening with adjacent fluid and stranding Carrillo catheter was placed, but it was painfull Will removed the cath and do a voiding trial Pt was able to urinate with no discomfort History prostate cancer on Eligard, patient not septic, rule out obstructive uropathy given back pain complaints Diarrhea rule out C. difficile Hx nonischemic cardiomyopathy/history of VT/sudden cardiac status post ICD Continue statin, and metoprolol Stable DVT prophylaxis. SCDs due to hematuria from the Carrillo catheter CODE STATUS DNR contact number: [phone]. Total Time Total Time Spent Total Time Spent (In Minutes): 35minutes Discharge Plan Discharge Items Patient Disposition: Home - Self-Care Reason For Visit: DELIRIUM Discharge Diagnosis: Weakness: Fall: Hypokalemia Abnormal urine Dementia Diarrhea Urinary retention History prostate cancer Activity: Resume your previous activity Non-emergency contact: Primary Care Provider, Oncologist and Urologist Call non-emergency contact if: you have any medication questions, your symptoms worsen and your temperature is above 101 Follow-up/Referrals: Armani Chen MD [Primary Care Provider] - Diet: Heart Healthy Addtl Attending Provider Instructions: Follow up with your primary care provider within 1 week (Office will call you for the appointment) Continue physical and occupational therapy Complete the course of the antibiotic with Keflex ( starting tomorrow ) Seek medical attention if your symptoms worsening and reoccur Increase potassium supplement in your diet Please check BMP in 1 to 2 week to monitor your electrolytes Fall precaution Pending Studies at Discharge: No Stand-Alone Forms: My My[employer], Smoking Cessation Medications and DC Order Prescriptions: New cephalexin 500 mg capsule 500 mg PO BID 4 Days Qty: 8 RF: 0 Continued vitamin B complex [B Complex-Vitamin B12] Tablet 1 tab PO DAILY RF: 0 fluticasone propion-salmeterol 113-14 mcg/actuation aerosol powdr breath activated 1 inh inhalation BID RF: 0 magnesium oxide 400 mg magnesium capsule 400 mg PO DAILY RF: 0 metoprolol succinate 25 mg tablet extended release 24 hr 25 mg PO DAILY RF: 0 riboflavin (vitamin B2) 400 mg tablet 400 mg PO DAILY RF: 0 zinc gluconate 50 mg tablet 50 mg PO DAILY RF: 0 albuterol sulfate [Ventolin HFA] 90 mcg/actuation HFA aerosol inhaler 2 puff inhalation Q4H PRN (Reason: Shortness Of Breath Or Wheezing) RF: 0 Eligard 7.5 mg (1 month) syringe 7.5 mg subcut ONCE Qty: 1 RF: 0 metoprolol succinate 50 mg Tablet Extended Release 24 Hr See Rx Instructions .ROUTE .COMPLEX RF: 0 atorvastatin 20 mg Tablet 20 mg PO QAM RF: 0 clonazepam 1 mg Tablet 1 mg PO QPM RF: 0 gabapentin 100 mg Capsule 200 mg PO HS RF: 0 omeprazole 20 mg Capsule,Delayed Release(Dr/Ec) 20 mg PO BID RF: 0 divalproex [Depakote] 500 mg tablet,delayed release (DR/EC) 1,000 mg PO BID RF: 0 Discharge Orders: Discharge Order (Routine); Ordered 02/25/22 Ordered By: Balwinder Chong Admission Data Admit Date/Time: 02/23/22 06:46 Attending Provider: Balwinder Chong Admit Provider: Balwinder Chong Primary Care Provider: Armani Chen Other Providers: Jesus Mcclendon Other Interventions: Discharge Summary Assessment (RN) Last Done: 02/25/22 15:53
== END 2022-02-25 16:38 | disposition home or self-care (01) | DRG 690 ==
LOC: ED 00:21 → 2W 06:46

== ENCOUNTER 2022-04-15 13:58 | Inpatient (IN) ==
[2022-04-15] MEDS ORDERED: cefTRIAXone SODIUM 2,000 MG/70 ML BAG IV STA (14:14)
[2022-04-15] MEDS ORDERED: SODIUM CHLORIDE 0.9% 1000ML 1,000 ML IV SCH ×2 (14:15→15:15)
--- NOTE | 2022-04-15 14:19 | Emergency Department Note ---
Impression & Plan Sepsis, UTI (urinary tract infection), Acute hypotension ED Provider Note NAME: TATUM STEWART AGE: 66 SEX: M : 1955 ARRIVES VIA: Ambulance INFORMANT: Patient ED PROVIDER(S): Rodri Bruce DO CHIEF COMPLAINT: Fever and lightheaded HPI: Patient is a 66-year-old male with dementia that presents to the ER for symptoms that started within the past 24 hours. notes he was recently DC'd from [facility] earlier this week for rehab. This morning he is much more weaker and confused. He was having fevers at home. He has had recurrent falls today of at least 1 that the is aware of. He denies any headache or change in vision. No cough or runny nose. No chest pain or shortness of breath. No nausea, vomiting, or diarrhea. No dysuria, urgency, or frequency. No other exacerbating or remitting factors. No open wounds. ROS: See above HPI for pertinent positives & negatives. A total of 10 systems reviewed and were otherwise negative. PAST MEDICAL HISTORY:See Below PAST SURGICAL HISTORY:See Below FAMILY HISTORY:See Below SOCIAL HISTORY:See Below HOME MEDICATIONS:See Below ALLERGIES:See Below VITALS:See Below PHYSICAL EXAMINATION: GENERAL: Sitting up in bed, alert, well appearing, well nourished, no distress, non-toxic EYE EXAM: normal conjunctiva. PERRL and EOM's grossly intact. OROPHARYNX: no exudate, no erythema, lips, buccal mucosa, and tongue normal and mucous membranes are moist NECK: supple, no nuchal rigidity, no adenopathy, non-tender LUNGS: Clear to auscultation. Normal chest wall mechanics HEART: no murmurs, S1 normal and S2 normal ABDOMEN: abdomen soft, non-tender, normo-active bowel sounds, no masses, no rebound or guarding. BACK: Back is symmetrical on inspection and there is no deformity, no midline tenderness, no CVA tenderness. UPPER EXTREMITIES: upper extremities are grossly normal. LOWER EXTREMITIES: No pitting edema. NEURO EXAM: Oriented to person, year but not month or place cranial nerves II- XII intact, normal speech, no weakness of arms, no weakness of legs. MEDICAL DECISION MAKING: Patient is a 66-year-old male with dementia that presents the ER for fevers. Upon presentation he is found to be hypotensive with systolic pressures in the 80s. Borderline febrile with a temp of 37.7. IV was established blood work was obtained. Labs show no significant leukocytosis. Mild anemia 11.9. BMP along with LFTs bilirubin was unremarkable. Troponin was negative. Pro-Carlos was normal. UA with leukocytes, whites and hematuria consistent with a UTI. I nfluenza COVID and RSV were negative. CT abdomen pelvis showed stranding and thickening of the bladder consistent with UTI. Patient was given 2 g of Rocephin as well as 2 L of IV fluids. No additional fluids were given beyond these 2 L as this gentleman does have a history of cardiomyopathy. He was 300 mL short of a 30 CC/kg but his systolic pressures had improved and he was not tachycardic. Did not want to overload him and consequently did not give him the complete 30 cc/kg intentionally for concern for possible CHF. was updated at bedside. He is a DNR/DNI. Patient was discussed with hospitalist admitted for further work-up. Triage Nursing notes reviewed. Limited review of prior medical records performed Vital Signs: reviewed and remarkable for hypotensive, tachycardic and febrile Differential diagnosis: Differential diagnosis includes etiologies such as sepsis, UTI, pneumonia, metabolic, electrolyte abnormalities, cardiac sources, intracerebral event, toxicologic, neurological, as well as others were entertained. ER treatment provided: See below Diagnostics interpreted by me: ECG: Sinus rhythm rate of 93 Left axis PVCs QTC 447 Cardiac Monitoring: An order was placed for continuous cardiac monitoring. The monitor shows a rate of 88 with sinus rhythm. Laboratory studies: As stated above and show below. Imaging studies: Head was negative Portable AP upright 1 view of the chest was unremarkable CT abdomen pelvis as discussed above had stranding around the bladder. Consultation(s): Discussed with hospitalist for further evaluation and admission Procedures: none Critical Care: I have personally spent 32 minutes of critical care time in the direct management of this patient. This includes bedside care, interpretation of diagnostic studies, and testing, discussion with consultants, patient, and family members, and other required patient management activities. This 32 mi nutes is in excess of all separately billable procedures. Past Med/Surg History Medical History Cardiac defibrillator in place (2009) Cardiomyopathy NONISCHEMIC, S/P AICD PLACED IN 2009. Dementia IS THE PERSON WHOM TO SPEAK TO. STATES HE GETS VERY UPSET WITH SOMEONE ASKING QUESTIONS. BEHAVIORIAL VARIANCE FRONTAL TEMPORAL-F/U DR GONZALEZ; Essential tremor BOTH HANDS - STATES HAS DIFFICULTY HOLDING ONTO THINGS Fall GERD (gastroesophageal reflux disease) History of colon polyps History of melanoma Left Arm Hyperlipidemia Hypertension ICD (implantable cardioverter-defibrillator) in place [employer]. LAST INTERROGATION 09/22/19. NORMAL FUNCTION. STABLE PACING AND SENSING THRESHOLDS. NO SHOCKS. Osteoarthritis Pacemaker (2009) Parkinsonism D/T FRONTAL DEMENTIA; SHUFFLES FEET WITH WALKING AND STUMBLES - USES WALKING STICK Postural hypotension STATES HE GETS DIZZY WHEN STANDING Prostate cancer (08/02/21) Weakness Surgical History History of anesthesia reaction PER PATIENT'S , PT GETS VERY CONFUSED AND IS SLOW TO WAKE UP History of cardiac cath MULTIPLE. NO STENTS. LAST HEART CATH ~2014. History of colonoscopy (08/20/18) History of left inguinal hernia repair (05/26/19) History of prostate biopsy (08/02/21) Dr. Francisco Gardiner at [facility] Hx of melanoma excision (2011) Left Arm Presence of combination internal cardiac defibrillator (ICD) and pacemaker (2009) PLACED 2009. [employer]. Family History Father , Passed at 60 Melanoma Mother , Passed Age 90's No problems noted. Sister No problems noted. Brother No problems noted. Son Melanoma, Onset Age: 22 pre-cancerous area removed Daughter No problems noted. 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 How many Children do You have: 2 other: patient with history of dementia Feels Safe at Home: Yes Childhood Exposure to Second-Hand Smoke: Yes caffeine: Yes (coffee in AM) during the past year weight has: remained stable Dental Care, Regularly: No Assistive Devices: Walker Allergies Allergies Allergy/AdvReac Type Severity Reaction Status Date / Time latex Allergy Intermediate RASH Verified 04/15/22 16:05 haloperidol AdvReac Intermediate PSYCHOSIS Verified 04/15/22 16:05 lactose AdvReac Intermediate GI UPSET Verified 04/15/22 16:05 WITH MILK PRODUCTS midazolam AdvReac Intermediate PSYCHOSIS Verified 04/15/22 16:05 risperidone AdvReac Intermediate HALLUCINATI Verified 04/15/22 16:05 ON Home Meds Home Medications Medication Instructions Recorded Confirmed atorvastatin 20 mg tablet 20 mg PO HS 08/16/18 04/15/22 clonazepam 1 mg tablet 1 mg PO HS 08/16/18 04/15/22 gabapentin 100 mg capsule 200 mg PO HS 08/16/18 04/15/22 omeprazole 20 mg capsule,delayed 20 mg PO DAILY 08/16/18 04/15/22 release metoprolol succinate 50 mg 50 mg PO BID 11/06/19 04/15/22 tablet,extended release 24 hr albuterol sulfate 90 mcg/actuation 2 puff INHALATION Q4H PRN g 09/13/21 04/15/22 aerosol inhaler (Ventolin HFA) divalproex 500 mg tablet,delayed 1,000 mg PO AMHS tab 09/13/21 04/15/22 release (Depakote) magnesium oxide 400 mg PO DAILY 09/13/21 04/15/22 metoprolol succinate 25 mg 25 mg PO QPM 09/13/21 04/15/22 tablet,extended release 24 hr riboflavin (vitamin B2) 400 mg 400 mg PO DAILY 09/13/21 04/15/22 tablet vitamin B complex (B 1 tab PO DAILY 09/13/21 04/15/22 Complex-Vitamin B12) zinc gluconate 50 mg tablet 50 mg PO DAILY 09/13/21 04/15/22 duloxetine 60 mg capsule,delayed 60 mg PO QAM 04/15/22 04/15/22 release fluticasone propionate 115 2 inh INHALATION BID 04/15/22 04/15/22 mcg-salmeterol 21 mcg/actuation HFA inhaler (Advair HFA) Results & Data (ED) Vital Signs Vital Signs - 24 hr 04/15/22 14:02 04/15/22 14:10 04/15/22 14:14 Temperature 37.7 C H Temperature Source Oral Pulse Rate 93 H Pulse Rate from SpO2 Sensor Respiratory Rate 16 Respiratory Effort / Characteristics Non-Labored Non-Labored Respiratory Depth Normal Normal Blood Pressure 87/53 L Blood Pressure Mean 64 Pulse Oximetry 95 97 Oxygen Delivery Method Room Air Room Air Sepsis New/Unexplained Change in Mental Status Yes Sepsis Action Taken by Nursing Physician Notified 04/15/22 14:24 04/15/22 14:29 04/15/22 14:30 Temperature Temperature Source Pulse Rate 95 H 82 Pulse Rate from SpO2 Sensor 81 Respiratory Rate 25 H Respiratory Effort / Characteristics Non-Labored Respiratory Depth Normal Blood Pressure 105/60 Blood Pressure Mean 75 Pulse Oximetry 92 95 Oxygen Delivery Method Room Air Sepsis New/Unexplained Change in Mental Status Sepsis Action Taken by Nursing 04/15/22 14:44 04/15/22 14:45 04/15/22 15:00 Temperature Temperature Source Pulse Rate 82 88 Pulse Rate from SpO2 Sensor Respiratory Rate 22 21 Respiratory Effort / Characteristics Non-Labored Respiratory Depth Blood Pressure 97/56 L 96/64 L Blood Pressure Mean 69 74 Pulse Oximetry 96 98 Oxygen Delivery Method Sepsis New/Unexplained Change in Mental Status Sepsis Action Taken by Nursing 04/15/22 15:14 04/15/22 15:15 04/15/22 15:43 Temperature Temperature Source Pulse Rate 90 83 Pulse Rate from SpO2 Sensor Respiratory Rate 19 24 Respiratory Effort / Characteristics Non-Labored Respiratory Depth Blood Pressure 93/69 L Blood Pressure Mean 77 Pulse Oximetry 97 93 Oxygen Delivery Method Sepsis New/Unexplained Change in Mental Status Sepsis Action Taken by Nursing 04/15/22 15:44 04/15/22 16:00 04/15/22 16:30 Temperature Temperature Source Pulse Rate 88 84 76 Pulse Rate from SpO2 Sensor 83 Respiratory Rate 23 21 19 Respiratory Effort / Characteristics Non-Labored Non-Labored Respiratory Depth Blood Pressure 105/54 L 113/65 104/66 Blood Pressure Mean 71 81 78 Pulse Oximetry 94 Oxygen Delivery Method Sepsis New/Unexplained Change in Mental Status Sepsis Action Taken by Nursing 04/15/22 17:00 04/15/22 17:30 Temperature Temperature Source Pulse Rate 75 Pulse Rate from SpO2 Sensor 77 Respiratory Rate 18 Respiratory Effort / Characteristics Non-Labored Non-Labored Respiratory Depth Blood Pressure 93/61 L Blood Pressure Mean 71 Pulse Oximetry 94 Oxygen Delivery Method Room Air Sepsis New/Unexplained Change in Mental Status Sepsis Action Taken by Nursing Laboratory Data Result diagrams: 04/15/22 14:20 04/15/22 14:20 Lab Results 04/15/22 04/15/22 04/15/22 Range/Units 14:15 14:20 14:20 WBC 7.34 (4.8-10.8) K/uL RBC 3.60 L (4.7-6.1) M/uL Hgb 11.9 L (14.0-18.0) g/dL Hct 35.4 L (42-52) % MCV 98.3 (80-100) fL MCH 33.1 (25-34) pg MCHC 33.6 (32-36) g/dL RDW Std Deviation 50.3 H (36.4-46.3) fL RDW Coeff of Gabi 14.1 (11.5-14.5) % Plt Count 155 (130-400) K/uL MPV 8.5 (7.4-10.4) fL Immature Gran % (Auto) 0.3 % Neut % (Auto) 61.0 % Lymph % (Auto) 17.8 % Edmunds % (Auto) 18.1 % Eos % (Auto) 2.5 % Baso % (Auto) 0.3 % Neut # (Auto) 4.48 (1.4-6.5) K/uL Lymph # (Auto) 1.31 (1.2-3.4) K/uL Edmunds # (Auto) 1.33 H (0.11-0.59) K/uL Eos # (Auto) 0.18 (0-0.5) K/uL Baso # (Auto) 0.02 (0-0.2) K/uL Immature Gran # (Auto) 0.02 (0.00-0.02) K/uL PT 11.5 (9.0-12.0) Seconds INR 1.1 (0.9-1.1) APTT 36.3 H (21.0-31.0) Seconds PTT Ratio 1.3 Sodium (136-145) mmol/L Potassium (3.5-5.1) mmol/L Chloride (98-107) mmol/L Carbon Dioxide (21-32) mmol/L Anion Gap (3-11) BUN (6-23) mg/dl Creatinine (0.6-1.4) mg/dl Est Cr Clr Drug Dosing Est GFR ( Amer) ml/min Est GFR (Non-Af Amer) ml/min BUN/Creatinine Ratio (10-20) Glucose (70-99(Fasting)) mg/dl Lactate (0.4-2.0) mmol/L Calcium (8.5-10.1) mg/dl Magnesium (1.7-2.4) mg/dl Total Bilirubin (0.2-1.0) mg/dl AST (13-39) U/L ALT (7-52) U/L Alkaline Phosphatase (34-104) U/L Troponin I High Sens (0-20) pg/ml Total Protein (6.0-8.3) gm/dl Albumin (3.4-5.0) gm/dl Globulin (2.5-4.0) gm/dl Albumin/Globulin Ratio (0.9-2) Procalcitonin (0-0.5) ng/ml Urine Color Urine Appearance (Clear) Urine pH (4.5-7.5) Ur Specific [place] (1.000-1.030) Urine Protein (Negative) Urine Glucose (UA) (Negative) Urine Ketones (Negative) Urine Blood (Negative) Urine Nitrite (Negative) Urine Bilirubin (Negative) Urine Urobilinogen (Negative) Ur Leukocyte Esterase (Negative) Urine WBC (Auto) (0-5) /hpf Urine RBC (Auto) (0-4) /hpf U Hyaline Cast (Auto) (0-5) /lpf U Epithel Cells (Auto) (0-5) /lpf Urine Bacteria (Auto) (Negative) Urine Yeast SARS-CoV-2 (PCR) NEGATIVE (Negative) Influenza Type A (PCR) Negative (Neg) Influenza Type B (PCR) Negative (Neg) RSV (RT-PCR) Negative (Neg) 04/15/22 04/15/22 04/15/22 Range/Units 14:20 14:20 14:20 WBC (4.8-10.8) K/uL RBC (4.7-6.1) M/uL Hgb (14.0-18.0) g/dL Hct (42-52) % MCV (80-100) fL MCH (25-34) pg MCHC (32-36) g/dL RDW Std Deviation (36.4-46.3) fL RDW Coeff of Gabi (11.5-14.5) % Plt Count (130-400) K/uL MPV (7.4-10.4) fL Immature Gran % (Auto) % Neut % (Auto) % Lymph % (Auto) % Edmunds % (Auto) % Eos % (Auto) % Baso % (Auto) % Neut # (Auto) (1.4-6.5) K/uL Lymph # (Auto) (1.2-3.4) K/uL Edmunds # (Auto) (0.11-0.59) K/uL Eos # (Auto) (0-0.5) K/uL Baso # (Auto) (0-0.2) K/uL Immature Gran # (Auto) (0.00-0.02) K/uL PT (9.0-12.0) Seconds INR (0.9-1.1) APTT (21.0-31.0) Seconds PTT Ratio Sodium 139 (136-145) mmol/L Potassium 3.9 (3.5-5.1) mmol/L Chloride 106 (98-107) mmol/L Carbon Dioxide 26 (21-32) mmol/L Anion Gap 7 (3-11) BUN 21 (6-23) mg/dl Creatinine 0.75 (0.6-1.4) mg/dl Est Cr Clr Drug Dosing Not Reportable Est GFR ( Amer) 110.0 ml/min Est GFR (Non-Af Amer) 94.9 ml/min BUN/Creatinine Ratio 28.0 H (10-20) Glucose 90 (70-99(Fasting)) mg/dl Lactate 1.2 (0.4-2.0) mmol/L Calcium 8.8 (8.5-10.1) mg/dl Magnesium 1.7 (1.7-2.4) mg/dl Total Bilirubin 0.4 (0.2-1.0) mg/dl AST 13 (13-39) U/L ALT 6 L (7-52) U/L Alkaline Phosphatase 49 (34-104) U/L Troponin I High Sens 4.1 (0-20) pg/ml Total Protein 5.8 L (6.0-8.3) gm/dl Albumin 3.4 (3.4-5.0) gm/dl Globulin 2.4 L (2.5-4.0) gm/dl Albumin/Globulin Ratio 1.4 (0.9-2) Procalcitonin < 0.05 (0-0.5) ng/ml Urine Color Urine Appearance (Clear) Urine pH (4.5-7.5) Ur Specific [place] (1.000-1.030) Urine Protein (Negative) Urine Glucose (UA) (Negative) Urine Ketones (Negative) Urine Blood (Negative) Urine Nitrite (Negative) Urine Bilirubin (Negative) Urine Urobilinogen (Negative) Ur Leukocyte Esterase (Negative) Urine WBC (Auto) (0-5) /hpf Urine RBC (Auto) (0-4) /hpf U Hyaline Cast (Auto) (0-5) /lpf U Epithel Cells (Auto) (0-5) /lpf Urine Bacteria (Auto) (Negative) Urine Yeast SARS-CoV-2 (PCR) (Negative) Influenza Type A (PCR) (Neg) Influenza Type B (PCR) (Neg) RSV (RT-PCR) (Neg) 04/15/22 Range/Units 14:26 WBC (4.8-10.8) K/uL RBC (4.7-6.1) M/uL Hgb (14.0-18.0) g/dL Hct (42-52) % MCV (80-100) fL MCH (25-34) pg MCHC (32-36) g/dL RDW Std Deviation (36.4-46.3) fL RDW Coeff of Gabi (11.5-14.5) % Plt Count (130-400) K/uL MPV (7.4-10.4) fL Immature Gran % (Auto) % Neut % (Auto) % Lymph % (Auto) % Edmunds % (Auto) % Eos % (Auto) % Baso % (Auto) % Neut # (Auto) (1.4-6.5) K/uL Lymph # (Auto) (1.2-3.4) K/uL Edmunds # (Auto) (0.11-0.59) K/uL Eos # (Auto) (0-0.5) K/uL Baso # (Auto) (0-0.2) K/uL Immature Gran # (Auto) (0.00-0.02) K/uL PT (9.0-12.0) Seconds INR (0.9-1.1) APTT (21.0-31.0) Seconds PTT Ratio Sodium (136-145) mmol/L Potassium (3.5-5.1) mmol/L Chloride (98-107) mmol/L Carbon Dioxide (21-32) mmol/L Anion Gap (3-11) BUN (6-23) mg/dl Creatinine (0.6-1.4) mg/dl Est Cr Clr Drug Dosing Est GFR ( Amer) ml/min Est GFR (Non-Af Amer) ml/min BUN/Creatinine Ratio (10-20) Glucose (70-99(Fasting)) mg/dl Lactate (0.4-2.0) mmol/L Calcium (8.5-10.1) mg/dl Magnesium (1.7-2.4) mg/dl Total Bilirubin (0.2-1.0) mg/dl AST (13-39) U/L ALT (7-52) U/L Alkaline Phosphatase (34-104) U/L Troponin I High Sens (0-20) pg/ml Total Protein (6.0-8.3) gm/dl Albumin (3.4-5.0) gm/dl Globulin (2.5-4.0) gm/dl Albumin/Globulin Ratio (0.9-2) Procalcitonin (0-0.5) ng/ml Urine Color Yellow Urine Appearance Turbid A (Clear) Urine pH 7.0 (4.5-7.5) Ur Specific [place] 1.010 (1.000-1.030) Urine Protein 2+ H (Negative) Urine Glucose (UA) Negative (Negative) Urine Ketones Negative (Negative) Urine Blood 3+ H (Negative) Urine Nitrite Negative (Negative) Urine Bilirubin Negative (Negative) Urine Urobilinogen Negative (Negative) Ur Leukocyte Esterase 3+ H (Negative) Urine WBC (Auto) >30 H (0-5) /hpf Urine RBC (Auto) 10-30 H (0-4) /hpf U Hyaline Cast (Auto) 0 (0-5) /lpf U Epithel Cells (Auto) 0-5 (0-5) /lpf Urine Bacteria (Auto) Negative (Negative) Urine Yeast Not Reportable SARS-CoV-2 (PCR) (Negative) Influenza Type A (PCR) (Neg) Influenza Type B (PCR) (Neg) RSV (RT-PCR) (Neg) Administered Medications Discontinued Medications Sodium Chloride (Nss 1000ml) 1,000 mls @ 999 mls/hr IV .Q1H1M LESTER Stop: 04/15/22 15:15 Last Infusion: 04/15/22 15:50 Dose: 0 mls/hr Documented by: [id number] Admin: 04/15/22 14:29 Dose: 999 mls/hr Documented by: [id number] Sodium Chloride (Nss 1000ml) 1,000 mls @ 999 mls/hr IV .Q1H1M LESTER Stop: 04/15/22 16:15 Last Infusion: 04/15/22 15:45 Dose: 0 mls/hr Documented by: [id number] Admin: 04/15/22 15:11 Dose: 999 mls/hr Documented by: [id number] Ceftriaxone Sodium (Rocephin) 2,000 mg in 70 mls @ 140 mls/hr IV NOW STA Stop: 04/15/22 14:43 Last Infusion: 04/15/22 15:20 Dose: 0 mls/hr Documented by: [id number] Admin: 04/15/22 14:45 Dose: 140 mls/hr Documented by: [id number] Ioversol (Optiray 320 100ml) 94 ml IV ONCE ONE Stop: 04/15/22 15:37 Last Admin: 04/15/22 15:37 Dose: 94 ml Documented by: [id number] Imaging Data Radiologist's Impression: Abdomen/Pelvis CT 04/15/22 14:[address] WITH IV CONTRAST CT DOSE: 330.23 mGy.cm HISTORY: Generalized abdominal pain. Sepsis. TECHNIQUE: Multiaxial CT images of the abdomen and pelvis were performed following the use of intravenous contrast. A dose lowering technique was utilized adhering to the principles of ALARA. COMPARISON STUDY: Abdomen and pelvis CT 02/23/2022. FINDINGS: The lung bases are clear. No pneumoperitoneum. No pneumatosis. There are healing left anterior sixth through ninth rib fractures pacemaker wires are noted. Bilateral fat-containing inguinal hernias are again noted. There is moderate to severe bladder wall thickening with adjacent fat stranding/edema. This has progressed in the interval and is consistent with a cystitis. Trace presacral edema is also noted. Multiple bilateral renal and hepatic hypodense lesions are again noted. These favor cysts. There are few punctate bilateral renal calculi. No ureteral calculi. No hydronephrosis. Mild bilateral perinephric edema which is likely chronic. 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 This remains unchanged. The gallbl adder and adrenal glands are unremarkable. The pancreas enhances normally. A subcentimeter hypodense lesion within the spleen is too small to characterize. No retroperitoneal lymphadenopathy. Moderate calcified plaque within the normal caliber abdominal aorta. No bowel wall thickening or obstruction. Normal appendix. IMPRESSION: 1. Moderate to severe bladder wall thickening with surrounding fat stranding/edema. This has progressed in the interval and likely represents a cystitis. Recommend correlation with urinalysis. 2. No bowel wall thickening or obstruction. 3. Normal appendix. 4. Punctate bilateral renal calculi. No ureteral calculi. No hydronephrosis. 5. Healing left anterior rib fractures. No acute fractures identified. ACT 112: Negative or not required by law. Electronically signed by: Kevon Haji M.D. 04/15/2022 3:47 PM Chest X-Ray 04/15/22 14:14 XR chest 1V portable HISTORY: SEPSIS COMPARISON: Chest 02/23/2022. FINDINGS: No pneumothorax. No pleural effusions. The lungs are clear. The heart is normal in size. Left-sided pacemaker/defibrillator is again noted. IMPRESSION: No acute process. ACT 112: Negative or not required by law. Electronically signed by: Kevon Haji M.D. 04/15/2022 3:[address] 04/15/22 14:[address] DOSE: 773.57 mGy.cm HISTORY: fall TECHNIQUE: Multiaxial CT images of the head were performed without the use of intravenous contrast. Automated exposure control was utilized for this study. A dose lowering technique was utilized adhering to the principles of ALARA. Comparison: Head CT 02/23/2022. Findings: The paranasal sinuses and mastoid air cells are clear. The calvarium and skull base are intact. There is no mass, hematoma, midline shift, acute infarct. White matter hypodensity is nonspecific but suggestive of microvascular ischemic change. The ventricles and sulci demonstrate mild age-related involutional changes. Impression: No significant change compared to the prior study. No acute intracranial abnormality. ACT 112: Negative or not required by law. Electronically signed by: Kevon Haji M.D. 04/15/2022 3:51 PM Discharge Plan Visit Data Chief Complaint: Fever Stated Complaint: ILLNESS, FEVER, URINARY SX ED Provider: Rodri Bruce Discharge Problem: Sepsis, UTI (urinary tract infection), Acute hypotension Patient Disposition: Admitted As Inpatient Discharge Instructions Interventions: ED Discharge Assessment Last Done: 04/15/22 18:00 Forms Stand Alone Forms: My Xspand Prescriptions Prescriptions: No Action vitamin B complex [B Complex-Vitamin B12] Tablet 1 tab PO DAILY RF: 0 magnesium oxide 400 mg magnesium capsule 400 mg PO DAILY RF: 0 metoprolol succinate 25 mg tablet extended release 24 hr 25 mg PO QPM RF: 0 riboflavin (vitamin B2) 400 mg tablet 400 mg PO DAILY RF: 0 zinc gluconate 50 mg tablet 50 mg PO DAILY RF: 0 albuterol sulfate [Ventolin HFA] 90 mcg/actuation HFA aerosol inhaler 2 puff inhalation Q4H PRN (Reason: Shortness Of Breath Or Wheezing) RF: 0 metoprolol succinate 50 mg Tablet Extended Release 24 Hr 50 mg PO BID RF: 0 atorvastatin 20 mg Tablet 20 mg PO HS RF: 0 clonazepam 1 mg Tablet 1 mg PO HS RF: 0 gabapentin 100 mg Capsule 200 mg PO HS RF: 0 omeprazole 20 mg Capsule,Delayed Release(Dr/Ec) 20 mg PO DAILY RF: 0 divalproex [Depakote] 500 mg tablet,delayed release (DR/EC) 1,000 mg PO AMHS RF: 0 duloxetine 60 mg capsule,delayed release(DR/EC) 60 mg PO QAM RF: 0 Advair HFA 115-21 mcg/actuation HFA aerosol inhaler 2 inh INHALATION BID RF: 0 Referrals Referrals: Armani Chen MD [Primary Care Provider] - Discharge Problem: Sepsis Qualifiers: Sepsis type: sepsis due to unspecified organism Sepsis acute organ dysfunction status: unspecified Qualified Code(s): A41.9 - Sepsis, unspecified organism UTI (urinary tract infection) Qualifiers: Urinary tract infection type: acute cystitis Hematuria presence: with hematuria Qualified Code(s): N30.01 - Acute cystitis with hematuria
[2022-04-15 14:32] LABS: Basophils # (auto) 0.02 K/uL (0-0.2); Basophils % (auto) 0.3 %; Eosinophils # (auto) 0.18 K/uL (0-0.5); Eosinophils % (auto) 2.5 %; Hematocrit (blood only) 35.4 % (42-52); Hemoglobin 11.9 g/dL (14.0-18.0); Immature Granulocytes # (auto) 0.02 K/uL (0.00-0.02); Immature Granulocytes % (auto) 0.3 %; Lymphocytes # (auto) 1.31 K/uL (1.2-3.4); Lymphocytes % (auto) 17.8 %; Mean Corpuscular Hemoglobin 33.1 pg (25-34); Mean Corpuscular Hgb Conc 33.6 g/dL (32-36); Mean Corpuscular Volume 98.3 fL (80-100); Mean Platelet Volume 8.5 fL (7.4-10.4); Monocytes # (auto) 1.33 K/uL (0.11-0.59); Monocytes % (auto) 18.1 %; Neutrophils # (auto) 4.48 K/uL (1.4-6.5); Platelet Count 155 K/uL (130-400); RDW Coefficient of Variation 14.1 % (11.5-14.5); RDW Standard Deviation 50.3 fL (36.4-46.3); White Blood Count 7.34 K/uL (4.8-10.8)
[2022-04-15 14:53] LABS: Alanine Aminotransferase 6 U/L (7-52); Albumin Globulin Ratio 1.4 (0.9-2); Albumin Level 3.4 gm/dl (3.4-5.0); Alkaline Phosphatase 49 U/L (34-104); Anion Gap 7 (3-11); Aspartate Aminotransferase 13 U/L (13-39); Bilirubin,Total 0.4 mg/dl (0.2-1.0); Blood Urea Nitrogen 21 mg/dl (6-23); Calcium 8.8 mg/dl (8.5-10.1); Carbon Dioxide 26 mmol/L (21-32); Chloride 106 mmol/L (98-107); Est GFR (Non-African American) 94.9 ml/min; Globulin 2.4 gm/dl (2.5-4.0); Glucose 90 mg/dl (70-99(Fasting)); Magnesium 1.7 mg/dl (1.7-2.4); Potassium 3.9 mmol/L (3.5-5.1); Sodium 139 mmol/L (136-145); Total Protein 5.8 gm/dl (6.0-8.3)
[2022-04-15 14:57] LABS: Troponin I High Sensitivity 4.1 pg/ml (0-20)
[2022-04-15 15:05] LABS: INR 1.1 (0.9-1.1); Partial Thromboplastin Ratio 1.3; Partial Thromboplastin Time 36.3 Seconds (21.0-31.0); Prothrombin Time 11.5 Seconds (9.0-12.0)
--- NOTE | 2022-04-15 15:05 | XRay Report ---
XR chest 1V portable HISTORY: SEPSIS COMPARISON: Chest 02/23/2022. FINDINGS: No pneumothorax. No pleural effusions. The lungs are clear. The heart is normal in size. Le ft-sided pacemaker/defibrillator is again noted. IMPRESSION: No acute process. ACT 112: Negative or not required by law. Electronically signed by: Kveon Haji M.D. 04/15/2022 3:03 PM
[2022-04-15 15:17] LABS: Influenza A virus by PCR Negative (Neg); Influenza B virus by PCR Negative (Neg); RSV by PCR Negative (Neg); SARS CoV2 RNA(COVID-19) InHosp NEGATIVE (Negative)
[2022-04-15 15:33] LABS: Appearance Urine Turbid (Clear); Bacteria Urine Automated Negative (Negative); Bilirubin Urine Negative (Negative); Blood Urine 3+ (Negative); Cast Urine Automated 0 /lpf (0-5); Color Urine Yellow; Epithelial Cell Urine Auto 0-5 /lpf (0-5); Glucose Urine UA Negative (Negative); Ketones Urine Negative (Negative); Leukocyte Esterase Urine 3+ (Negative); Nitrite Urine Negative (Negative); Protein Urine 2+ (Negative); Urobilinogen Urine Negative (Negative); WBC Urine Automated >30 /hpf (0-5)
[2022-04-15] MEDS ORDERED: OPTIRAY 320 100ml IV ONE (15:36)
--- NOTE | 2022-04-15 15:49 | CT Scan Report ---
ABDOMEN AND PELVIS CT WITH IV CONTRAST CT DOSE: 330.23 mGy.cm HISTORY: Generalized abdominal pain. Sepsis. TECHNIQUE: Multiaxial CT images of the abdomen and pelvis were performed following the use of intrave nous contrast. A dose lowering technique was utilized adhering to the principles of ALARA. COMPARISON STUDY: Abdomen and pelvis CT 02/23/2022. FINDINGS: The lung bases are clear. No pneumoperitoneum. No pneumatosis. There are healing left anter ior sixth through ninth rib fractures pacemaker wires are noted. Bilateral fat-containing inguinal he rnias are again noted. There is moderate to severe bladder wall thickening with adjacent fat strandin g/edema. This has progressed in the interval and is consistent with a cystitis. Trace presacral edema is also noted. Multiple bilateral renal and hepatic hypodense lesions are again noted. These favor c ysts. There are few punctate bilateral renal calculi. No ureteral calculi. No hydronephrosis. Mild bi lateral perinephric edema which is likely chronic. 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 This remains unchanged. The gallbladder and adrenal glands are unremar kable. The pancreas enhances normally. A subcentimeter hypodense lesion within the spleen is too smal l to characterize. No retroperitoneal lymphadenopathy. Moderate calcified plaque within the normal ca liber abdominal aorta. No bowel wall thickening or obstruction. Normal appendix. IMPRESSION: 1. Moderate to severe bladder wall thickening with surrounding fat stranding/edema. This has progress ed in the interval and likely represents a cystitis. Recommend correlation with urinalysis. 2. No bowel wall thickening or obstruction. 3. Normal appendix. 4. Punctate bilateral renal calculi. No ureteral calculi. No hydronephrosis. 5. Healing left anterior rib fractures. No acute fractures identified. ACT 112: Negative or not required by law. Electronically signed by: Kevon Haji M.D. 04/15/2022 3:47 PM
--- NOTE | 2022-04-15 15:53 | CT Scan Report ---
HEAD CT NONCONTRAST CT DOSE: 773.57 mGy.cm HISTORY: fall TECHNIQUE: Multiaxial CT images of the head were performed without the use of intravenous contrast. A utomated exposure control was utilized for this study. A dose lowering technique was utilized adheri ng to the principles of ALARA. Comparison: Head CT 02/23/2022. Findings: The paranasal sinuses and mastoid air cells are clear. The calvarium and skull base are int act. There is no mass, hematoma, midline shift, acute infarct. White matter hypodensity is nonspecifi c but suggestive of microvascular ischemic change. The ventricles and sulci demonstrate mild age-rela live involutional changes. Impression: No significant change compared to the prior study. No acute intracranial abnormality. ACT 112: Negative or not required by law. Electronically signed by: Keovn Haji M.D. 04/15/2022 3:51 PM
--- NOTE | 2022-04-15 16:22 | History & Physical Report ---
Date of Service April 15, 2022 Assessment & Plan (1) UTI (urinary tract infection): Plan: Pt's reports ongoing issues with urinary symptoms since pt completed XRT at the end of January - increased hematuria and difficulty with urination over the last 24 hours - Admit to med telemetry due to hypotension on presentation - responded to IVF. Discussed the possible use of pressors if his BP would fall and not be responsive to IVF. She would like pressors initiated if indicated, at least temporarily so that she can discuss next steps with his outpatient care team. - Await urine culture but will continue empiric ceftriaxone for now. Normal lactate and procalcitonin. (2) Weakness: Plan: Likely multifactorial - PT/OT - Fall precatations (3) Confusion: Plan: Worsening of chronic dementia, likely due to #1 (4) Frontotemporal dementia with behavioral disturbance: Plan: Pt's dementia is worsening. His has realistic expectations of the anticipated clinical course - she reports that she has been trying to arrange outpatient palliative care evaluation and possible hospice if that is recommended. Will put in for a palliative care consult - is aware that he will not be seen by this service until at least next week. Goals of care and most appropriate discharge services will need to be determined. (5) Parkinsonism: (6) Prostate cancer: Plan: Completed radiation two months ago. (7) Hypertension: (8) Hyperlipidemia: (9) GERD (gastroesophageal reflux disease): (10) Cardiomyopathy: Plan: Continue other home medications as appropriate. Pt seen and evaluated with collaborating physician, Dr. Ambrosio. Plan of care discussed and as outlined above. Code Status: DNR/DNI - pt's provided living will and POLST, which were both placed on the chart DVT Prophylaxis: SubQ heparin Carlos Sinha PA-C History of Present Illness Chief Complaint: Confusion, Weakness Primary Care Provider: Armani Chen MD This is a 66 y/o male with a PMH of frontotemporal dementia with psychosis, prostate cancer with recent complication of XRT, nonischemic cardiology with pacer/defibrillator in 2009 (now essentially nonfunctional per ), HTN, GERD, depression, Parkinson Disease, hyperlipidemia, COPD, and BPH who presents to the ED via EMS with weakness, confusion and worsening hematuria. History obtained from the pt's at the beside as pt unable to provide any history at present due to dementia and confusion. Pt was admitted to [facility] 02/23-02/25/22 with UTI and weakness. Treated with ceftriaxone, saw PT/OT and was discharged home with home services. However, pt's reports that he was persistently weak after discharge so she advocated for rehab to help with deconditioning. He was finally admitted to [facility] 04/03-04/11 and received PT/OT with improvement. He was walking 250 ft with his walker upon discharge. He seemed to do well initially at home but today dramatically worsened again. reports that this morning he couldn't even sit on the toilet because he is so weak. She reports that his urine is light pink at baseline but last night when she collected a urine specimen for [facility], it was dark red, which is unusual for him. Extreme difficulty urinating this morning as well. He has some trouble swallowing pills but otherwise tolerates a regular diet. At baseline, he is aware of the year but not the month or day. He is not always oriented to place. Pt's is working to arrange a palliative care consultation as an outpatient with potential transition to hospice if that is what palliative care recommends. Outpatient records were extensively reviewed for recent history including notes from [facility]. NOTE: Pt goes by "Al" Allergies Allergy/AdvReac Type Severity Reaction Status Date / Time latex Allergy Intermediate RASH Verified 04/15/22 16:05 haloperidol AdvReac Intermediate PSYCHOSIS Verified 04/15/22 16:05 lactose AdvReac Intermediate GI UPSET Verified 04/15/22 16:05 WITH [employer]K [employer]ODUCTS midazolam AdvReac Intermediate PSYCHOSIS Verified 04/15/22 16:05 risperidone AdvReac Intermediate HALLUCINATI Verified 04/15/22 16:05 ON Home Medications Medication Instructions Recorded Confirmed Type atorvastatin 20 mg tablet 20 mg PO HS 08/16/18 04/15/22 History clonazepam 1 mg tablet 1 mg PO HS 08/16/18 04/15/22 History gabapentin 100 mg capsule 200 mg PO HS 08/16/18 04/15/22 History omeprazole 20 mg capsule,delayed 20 mg PO DAILY 08/16/18 04/15/22 History release metoprolol succinate 50 mg 50 mg PO BID 11/06/19 04/15/22 History tablet,extended release 24 hr albuterol sulfate 90 mcg/actuation 2 puff INHALATION Q4H PRN g 09/13/21 04/15/22 History aerosol inhaler (Ventolin HFA) divalproex 500 mg tablet,delayed 1,000 mg PO AMHS tab 09/13/21 04/15/22 History release (Depakote) magnesium oxide 400 mg PO DAILY 09/13/21 04/15/22 History metoprolol succinate 25 mg 25 mg PO QPM 09/13/21 04/15/22 History tablet,extended release 24 hr riboflavin (vitamin B2) 400 mg 400 mg PO DAILY 09/13/21 04/15/22 History tablet vitamin B complex (B 1 tab PO DAILY 09/13/21 04/15/22 History Complex-Vitamin B12) zinc gluconate 50 mg tablet 50 mg PO DAILY 09/13/21 04/15/22 History duloxetine 60 mg capsule,delayed 60 mg PO QAM 04/15/22 04/15/22 History release fluticasone propionate 115 2 inh INHALATION BID 04/15/22 04/15/22 History mcg-salmeterol 21 mcg/actuation HFA inhaler (Advair HFA) Past Med/Surg History Medical History Cardiac defibrillator in place (2009) Cardiomyopathy NONISCHEMIC, S/P AICD PLACED IN 2009. Dementia IS THE PERSON WHOM TO SPEAK TO. STATES HE GETS VERY UPSET WITH SOMEONE ASKING QUESTIONS. BEHAVIORIAL VARIANCE FRONTAL TEMPORAL-F/U DR GONZALEZ; Essential tremor BOTH HANDS - STATES HAS DIFFICULTY HOLDING ONTO THINGS Fall GERD (gastroesophageal reflux disease) History of colon polyps History of melanoma Left Arm Hyperlipidemia Hypertension ICD (implantable cardioverter-defibrillator) in place [employer]. LAST INTERROGATION 09/22/19. NORMAL FUNCTION. STABLE PACING AND SENSING THRESHOLDS. NO SHOCKS. Osteoarthritis Pacemaker (2009) Parkinsonism D/T FRONTAL DEMENTIA; SHUFFLES FEET WITH WALKING AND STUMBLES - USES WALKING STICK Postural hypotension STATES HE GETS DIZZY WHEN STANDING Prostate cancer (08/02/21) Weakness Surgical History History of anesthesia reaction PER PATIENT'S , PT GETS VERY CONFUSED AND IS SLOW TO WAKE UP History of cardiac cath MULTIPLE. NO STENTS. LAST HEART CATH ~2014. History of colonoscopy (08/20/18) History of left inguinal hernia repair (05/26/19) History of prostate biopsy (08/02/21) Dr. Francisco Gardiner at [facility] Hx of melanoma excision (2011) Left Arm Presence of combination internal cardiac defibrillator (ICD) and pacemaker (2009 ) PLACED 2009. [employer]. Family History Father , Passed at 60 Melanoma Mother , Passed Age 90's No problems noted. Sister No problems noted. Brother No problems noted. Son Melanoma, Onset Age: 22 pre-cancerous area removed Daughter No problems noted. Other No family history of adverse response to anesthesia Social History Smoking Status: Never smoker Tobacco Type: Cigarettes Second Hand Exposure: No; Do You Dip or Chew Tobacco: No; Tobacco Cessation Education Requested by Patient: No Hx Alcohol Use: No Hx Substance Use: No Preferred Language: Cambodian Communication Ability: Effective Visual Impairment: Limited Hearing Ability: Hard of Hearing Informaticist Required: No Beliefs That Will Affect Care: None marital status: Current Living Situation: Alone and Spouse Current Living Situation Comment: is caregiver current occupational status: retired 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 How many Children do You have: 2 Other Information That Helps Us Care for You: No other: patient with history of dementia Feels Safe at Home: Yes Safety Concerns: Feels Safe At This Time Childhood Exposure to Second-Hand Smoke: Yes caffeine: Yes (coffee in AM) during the past year weight has: remained stable Dental Care, Regularly: No Assistive Devices: Walker Review of Systems Review of Systems: Unobtainable due to cognitive status Physical Exam Constitutional: comfortable; no acute distress sleeping but arousable - answers to his name Neck: trachea midline Respiratory: no respiratory distress and no labored breathing Auscultation: lungs clear to auscultation bilaterally; no rales, no rhonchi and no wheezes Cardiovascular: Rate/Rhythm: regular rate and regular rhythm Extremities: + edema (trace LE) AICD/PPM noted left upper chest Gastrointestinal (Abdomen): Inspection/Auscultation: normal bowel sounds; abdomen not distended Percussion/Palpation: + abdomen tender and abdomen soft Musculoskeletal: Head/Neck/Chest: normocephalic, head atraumatic and neck supple Skin: no jaundice Neurologic: moves all extremities Psychiatric: Orientation: oriented to person Results & Data Results & Data ([facility]) Vital Signs (Past 12 Hours) Vital Signs Temp Pulse Resp BP Pulse Ox 04/15/22 14:45 82 22 97/56 L 96 04/15/22 14:30 82 25 H 105/60 95 04/15/22 14:24 95 H 92 04/15/22 14:14 97 04/15/22 14:02 37.7 C H 93 H 16 87/53 L 95 Laboratory Results Laboratory Results - last 24 hr 04/15/22 04/15/22 04/15/22 14:15 14:20 14:20 WBC 7.34 RBC 3.60 L Hgb 11.9 L Hct 35.4 L MCV 98.3 MCH 33.1 MCHC 33.6 RDW Std Deviation 50.3 H RDW Coeff of Gabi 14.1 Plt Count 155 MPV 8.5 Immature Gran % (Auto) 0.3 Neut % (Auto) 61.0 Lymph % (Auto) 17.8 Brewster % (Auto) 18.1 Eos % (Auto) 2.5 Baso % (Auto) 0.3 Neut # (Auto) 4.48 Lymph # (Auto) 1.31 Brewster # (Auto) 1.33 H Eos # (Auto) 0.18 Baso # (Auto) 0.02 Immature Gran # (Auto) 0.02 PT 11.5 INR 1.1 APTT 36.3 H PTT Ratio 1.3 Sodium Potassium Chloride Carbon Dioxide Anion Gap BUN Creatinine Est Cr Clr Drug Dosing Est GFR ( Amer) Est GFR (Non-Af Amer) BUN/Creatinine Ratio Glucose Lactate Calcium Magnesium Total Bilirubin AST ALT Alkaline Phosphatase Troponin I High Sens Total Protein Albumin Globulin Albumin/Globulin Ratio Procalcitonin Urine Color Urine Appearance Urine pH Ur Specific Gilmer Urine Protein Urine Glucose (UA) Urine Ketones Urine Blood Urine Nitrite Urine Bilirubin Urine Urobilinogen Ur Leukocyte Esterase Urine WBC (Auto) Urine RBC (Auto) U Hyaline Cast (Auto) U Epithel Cells (Auto) Urine Bacteria (Auto) Urine Yeast SARS-CoV-2 (PCR) NEGATIVE Influenza Type A (PCR) Negative Influenza Type B (PCR) Negative RSV (RT-PCR) Negative 04/15/22 04/15/22 04/15/22 14:20 14:20 14:20 WBC RBC Hgb Hct MCV MCH MCHC RDW Std Deviation RDW Coeff of Agbi Plt Count MPV Immature Gran % (Auto) Neut % (Auto) Lymph % (Auto) Brewster % (Auto) Eos % (Auto) Baso % (Auto) Neut # (Auto) Lymph # (Auto) Brewster # (Auto) Eos # (Auto) Baso # (Auto) Immature Gran # (Auto) PT INR APTT PTT Ratio Sodium 139 Potassium 3.9 Chloride 106 Carbon Dioxide 26 Anion Gap 7 BUN 21 Creatinine 0.75 Est Cr Clr Drug Dosing Not Reportable Est GFR ( Amer) 110.0 Est GFR (Non-Af Amer) 94.9 BUN/Creatinine Ratio 28.0 H Glucose 90 Lactate 1.2 Calcium 8.8 Magnesium 1.7 Total Bilirubin 0.4 AST 13 ALT 6 L Alkaline Phosphatase 49 Troponin I High Sens 4.1 Total Protein 5.8 L Albumin 3.4 Globulin 2.4 L Albumin/Globulin Ratio 1.4 Procalcitonin < 0.05 Urine Color Urine Appearance Urine pH Ur Specific Gilmer Urine Protein Urine Glucose (UA) Urine Ketones Urine Blood Urine Nitrite Urine Bilirubin Urine Urobilinogen Ur Leukocyte Esterase Urine WBC (Auto) Urine RBC (Auto) U Hyaline Cast (Auto) U Epithel Cells (Auto) Urine Bacteria (Auto) Urine Yeast SARS-CoV-2 (PCR) Influenza Type A (PCR) Influenza Type B (PCR) RSV (RT-PCR) 04/15/22 14:26 WBC RBC Hgb Hct MCV MCH MCHC RDW Std Deviation RDW Coeff of Gabi Plt Count MPV Immature Gran % (Auto) Neut % (Auto) Lymph % (Auto) Brewster % (Auto) Eos % (Auto) Baso % (Auto) Neut # (Auto) Lymph # (Auto) Brewster # (Auto) Eos # (Auto) Baso # (Auto) Immature Gran # (Auto) PT INR APTT PTT Ratio Sodium Potassium Chloride Carbon Dioxide Anion Gap BUN Creatinine Est Cr Clr Drug Dosing Est GFR ( Amer) Est GFR (Non-Af Amer) BUN/Creatinine Ratio Glucose Lactate Calcium Magnesium Total Bilirubin AST ALT Alkaline Phosphatase Troponin I High Sens Total Protein Albumin Globulin Albumin/Globulin Ratio Procalcitonin Urine Color Yellow Urine Appearance Turbid A Urine pH 7.0 Ur Specific Gilmer 1.010 Urine Protein 2+ H Urine Glucose (UA) Negative Urine Ketones Negative Urine Blood 3+ H Urine Nitrite Negative Urine Bilirubin Negative Urine Urobilinogen Negative Ur Leukocyte Esterase 3+ H Urine WBC (Auto) >30 H Urine RBC (Auto) 10-30 H U Hyaline Cast (Auto) 0 U Epithel Cells (Auto) 0-5 Urine Bacteria (Auto) Negative Urine Yeast Not Reportable SARS-CoV-2 (PCR) Influenza Type A (PCR) Influenza Type B (PCR) RSV (RT-PCR) Diagnostic Findings CT Head 04/15/22 - Impression: No significant change compared to the prior study. No acute intracranial abnormality. Chest X-ray 04/15/22 - IMPRESSION: No acute process. CT Abd/Pel 04/15/22 - IMPRESSION: 1. Moderate to severe bladder wall thickening with surrounding fat stranding/edema. This has progressed in the interval and likely represents a cystitis. Recommend correlation with urinalysis. 2. No bowel wall thickening or obstruction. 3. Normal appendix. 4. Punctate bilateral renal calculi. No ureteral calculi. No hydronephrosis. 5. Healing left anterior rib fractures. No acute fractures identified. Medications Administered Discontinued Medications Sodium Chloride (Nss 1000ml) 1,000 mls @ 999 mls/hr IV .Q1H1M LESTER Stop: 04/15/22 15:15 Last Infusion: 04/15/22 15:50 Dose: 0 mls/hr Documented by: [id number] Admin: 04/15/22 14:29 Dose: 999 mls/hr Documented by: [id number] Sodium Chloride (Nss 1000ml) 1,000 mls @ 999 mls/hr IV .Q1H1M LESTER Stop: 04/15/22 16:15 Last Infusion: 04/15/22 15:45 Dose: 0 mls/hr Documented by: [id number] Admin: 04/15/22 15:11 Dose: 999 mls/hr Documented by: [id number] Ceftriaxone Sodium (Rocephin) 2,000 mg in 70 mls @ 140 mls/hr IV NOW STA Stop: 04/15/22 14:43 Last Infusion: 04/15/22 15:20 Dose: 0 mls/hr Documented by: [id number] Admin: 04/15/22 14:45 Dose: 140 mls/hr Documented by: [id number] Ioversol (Optiray 320 100ml) 94 ml IV ONCE ONE Stop: 04/15/22 15:37 Last Admin: 04/15/22 15:37 Dose: 94 ml Documented by: [id number] Supervising Physician Co-Signing Physician Notes Pt is a 66 y/o M with hx of COPD, HLD, NICM, NSVT s/p ICD, Prostate ca s/p radiation (currently on Eligard), HTN, Thrombocytopenia, Frontotemporal dementia, RLS, BPH admitted for worsening generalized weakness and UTI. Per pt was [facility] and discharged him 4 days ago. At baseline he walks with walker. They are currently in the process of seeing palliative to potentially discuss Hospice. Pt is currently DNR/DNI. is the POA; no invasive measures but okay with pressors until physician discuss with . PE: NAD, well developed Cardiac: Normal S1/S2, no murmur Lungs: CTA, no wheezing or crackles Abd: ND, soft, TTP of the suprapubic area MSK: b/l trace pitting edema of the LE, able to move all his extremities Psych: appeared sleeping, at baseline pt is AAOx1 A/P: UTI: -will continue on ceftriaxone Generalized weakness: -PT/OT - CT head: no acute findings Prostate Ca with decline in functional status: -will get palliative consult Other chronic conditions: plan as above Agree with A/P by Marycarmen Sinha PA-C
[2022-04-15] MEDS ORDERED: ALBUTEROL HFA 8 GM INHALER INH PRN (18:27)
[2022-04-15] MEDS ORDERED: ACETAMINOPHEN 325 MG TAB PO PRN (18:27)
[2022-04-15] MEDS: DIVALPROEX DELAY RELEASE 500 MG TAB PO SCH (20:59)
[2022-04-15] MEDS: ATORVASTATIN 20 MG TAB PO SCH (20:59)
[2022-04-15] MEDS: clonazePAM 1 MG TAB PO SCH (20:59)
[2022-04-15] MEDS: GABAPENTIN 100 MG CAP PO SCH (20:59)
[2022-04-15] MEDS: HEPARIN SOD 5,000 UNIT/0.5 ML VIAL SQ SCH (20:59)
[2022-04-15] MEDS: METOPROLOL SUCC 50MG EXT REL TAB PO SCH (21:00)
[2022-04-15] MEDS: METOPROLOL SUCC 25MG EXT REL TAB PO SCH (21:00)
[2022-04-16] MEDS: cefTRIAXone SODIUM 1,000 MG in DEXTROSE 5% 50 ML IV SCH (06:30)
[2022-04-16] MEDS: DIVALPROEX DELAY RELEASE 500 MG TAB PO SCH ×2 (08:29→22:05)
[2022-04-16] MEDS: MAGNESIUM OXIDE 400 MG TAB PO SCH (08:29)
[2022-04-16] MEDS: DULoxetine HCL 60 MG CAP PO SCH (08:29)
[2022-04-16] MEDS: PANTOprazole 40 MG TAB PO SCH (08:29)
[2022-04-16] MEDS: ZINC SULFATE 220 MG CAPSULE PO SCH (08:29)
[2022-04-16] MEDS: VITAMIN B COMPLEX TAB PO SCH (08:29)
[2022-04-16] MEDS: HEPARIN SOD 5,000 UNIT/0.5 ML VIAL SQ SCH ×2 (08:30→22:02)
[2022-04-16] MEDS: METOPROLOL SUCC 50MG EXT REL TAB PO SCH ×2 (08:30→22:07)
[2022-04-16] MEDS: FLUTICASONE/VILANTEROL 200/25MCG 14 PUFFS/INHALER INH SCH (08:30)
[2022-04-16 08:58] LABS: Basophils # (auto) 0.01 K/uL (0-0.2); Basophils % (auto) 0.2 %; Eosinophils # (auto) 0.65 K/uL (0-0.5); Eosinophils % (auto) 12.1 %; Hematocrit (blood only) 37.1 % (42-52); Immature Granulocytes # (auto) 0.02 K/uL (0.00-0.02); Immature Granulocytes % (auto) 0.4 %; Lymphocytes # (auto) 1.06 K/uL (1.2-3.4); Lymphocytes % (auto) 19.8 %; Mean Corpuscular Hemoglobin 31.7 pg (25-34); Mean Corpuscular Hgb Conc 32.3 g/dL (32-36); Mean Corpuscular Volume 97.9 fL (80-100); Mean Platelet Volume 8.6 fL (7.4-10.4); Monocytes # (auto) 0.78 K/uL (0.11-0.59); Monocytes % (auto) 14.6 %; Neutrophils # (auto) 2.84 K/uL (1.4-6.5); Neutrophils % (auto) 52.9 %; Platelet Count 129 K/uL (130-400); RDW Coefficient of Variation 14.6 % (11.5-14.5); RDW Standard Deviation 51.9 fL (36.4-46.3); Red Blood Count 3.79 M/uL (4.7-6.1); White Blood Count 5.36 K/uL (4.8-10.8)
[2022-04-16] MEDS ORDERED: NON-FORMULARY MEDICATION (Riboflavin (Vitamin B2) 400 mg tablet) PO SCH (09:00)
[2022-04-16 09:13] LABS: BUN Creatinine Ratio 26.2 (10-20); Calcium 8.6 mg/dl (8.5-10.1); Creatinine Clr Calc Pharmacy 113.7 ml/min; Est GFR (African American) 119.8 ml/min; Est GFR (Non-African American) 103.3 ml/min; Potassium 3.8 mmol/L (3.5-5.1)
--- NOTE | 2022-04-16 13:38 | Electrocardiogram Report ---
Test Reason : Blood Pressure : / mmHG Vent. Rate : 093 BPM Atrial Rate : 093 BPM P-R Int : 138 ms QRS Dur : 084 ms QT Int : 360 ms P-R-T Axes : 062 -29 049 degrees QTc Int : 447 ms Sinus rhythm with frequent Premature ventricular complexes Otherwise normal ECG When compared with ECG of 23-FEB-2022 01:26, Premature ventricular complexes are now Present Confirmed by Lauro Wing ([id number]) on 04/16/2022 1:38:40 PM Referred By: REFERRED SELF Confirmed By:Lauro Wing
--- NOTE | 2022-04-16 15:24 | Hospitalist Progress Note ---
Date of Service April 16, 2022 Assessment & Plan (1) UTI (urinary tract infection): Plan: (1) UTI (urinary tract infection): Plan: Pt's reports ongoing issues with urinary symptoms since pt completed XRT at the end of January - increased hematuria and difficulty with urination over the last 24 hours [employer]. 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 Admitting procal and lactate wnl Admitting UA s/o UTI, await Urine Cx. f/u admitting blood culture. c/w rocephin 04/15 (2) Weakness: Plan: Likely multifactorial - PT/OT - Fall precatations (3) Confusion: Plan: Worsening of chronic dementia, likely due to #1 AOx3 today, resolved. (4) Frontotemporal dementia with behavioral disturbance: Plan: Pt's dementia is worsening. His has realistic expectations of the anticipated clinical course - she reports that she has been trying to arrange outpatient palliative care evaluation and possible hospice if that is recommended. Palliative care consulted. Goals of care and most appropriate discharge services will need to be determined. #. Other chronic medical conditions: Parkinsonism, prostate cancer [completed radiation 2 months ago], HTN, HLD, GERD, cardiomyopathy Continue with/resume home meds as and when appropriate. #. DVT prophylaxis: Hep SQ, monitor Hb. Admission and Anticipated Discharge Date Admission Date: April 15, 2022 Subjective Patient seen and examined at bedside for follow-up of UTI, confusion and history of frontotemporal dementia with behavioral disturbance, history of prostate cancer. Patient was sitting up in bed, on room air, NAD, AOx3, no new acute events overnight per patient. Patient reports eating and moving bowels okay. Patient reports having increased blood in the urine lately. Patient denies any headache/dizziness/chest pain/palpitations/belly pain/other review of symptoms. Physical Exam Physical Exam: GENERAL: Alert and oriented x3. NAD, on RA. HEENT: No pallor, no icterus. Pupils equal, round and reactive to light. Oral mucosa moist. NECK: No JVD, no neck masses. HEART: S1 and S2 heard. Regular rate and rhythm. No murmur, no gallop. RESPIRATORY SYSTEM: Normal AP diameter. No accessory muscle use. No wheezing, no crackles. ABDOMEN: Soft, bowel sounds present, nontender, no distention. CENTRAL NERVOUS SYSTEM: No facial droop. Speech is clear. Obeys simple commands. Moves extremities. EXTREMITIES: No edema, no erythema seen. exam: no trauma noted, clot noted falling off from the tip of the penis Results & Data Results & Data ([facility]) Vital Signs (Past 12 Hours) Vital Signs Temp Pulse Pulse Resp BP Pulse Ox 04/16/22 15:07 76 04/16/22 14:51 36.6 C 61 18 104/70 96 04/16/22 10:54 36.9 C 72 20 115/76 98 04/16/22 10:10 68 04/16/22 06:34 36.5 C 68 20 110/72 95 (1) UTI (urinary tract infection) Hematuria presence: with hematuria Urinary tract infection type: acute cystitis Qualified Code(s): N30.01 - Acute cystitis with hematuria
[2022-04-16] MEDS: ATORVASTATIN 20 MG TAB PO SCH (22:04)
[2022-04-16] MEDS: GABAPENTIN 100 MG CAP PO SCH (22:06)
[2022-04-16] MEDS: clonazePAM 1 MG TAB PO SCH (22:06)
[2022-04-16] MEDS: METOPROLOL SUCC 25MG EXT REL TAB PO SCH (22:07)
[2022-04-17 05:42] LABS: Hematocrit (blood only) 35.6 % (42-52); Hemoglobin 11.8 g/dL (14.0-18.0); Mean Corpuscular Hemoglobin 31.9 pg (25-34); Mean Corpuscular Hgb Conc 33.1 g/dL (32-36); Mean Corpuscular Volume 96.2 fL (80-100); Mean Platelet Volume 8.4 fL (7.4-10.4); Platelet Count 120 K/uL (130-400); RDW Standard Deviation 49.8 fL (36.4-46.3); White Blood Count 4.77 K/uL (4.8-10.8)
[2022-04-17 06:09] LABS: BUN Creatinine Ratio 27.4 (10-20); Calcium 8.5 mg/dl (8.5-10.1); Est GFR (African American) 111.2 ml/min; Magnesium 1.8 mg/dl (1.7-2.4); Phosphorus 4.1 mg/dl (2.5-4.9)
[2022-04-17] MEDS: cefTRIAXone SODIUM 1,000 MG in DEXTROSE 5% 50 ML IV SCH (06:13)
[2022-04-17] MEDS: DIVALPROEX DELAY RELEASE 500 MG TAB PO SCH ×2 (08:31→21:36)
[2022-04-17] MEDS: METOPROLOL SUCC 50MG EXT REL TAB PO SCH ×2 (08:31→21:37)
[2022-04-17] MEDS: HEPARIN SOD 5,000 UNIT/0.5 ML VIAL SQ SCH ×2 (08:32→21:41)
[2022-04-17] MEDS: ZINC SULFATE 220 MG CAPSULE PO SCH (08:32)
[2022-04-17] MEDS: FLUTICASONE/VILANTEROL 200/25MCG 14 PUFFS/INHALER INH SCH (08:32)
[2022-04-17] MEDS: PANTOprazole 40 MG TAB PO SCH (08:32)
[2022-04-17] MEDS: DULoxetine HCL 60 MG CAP PO SCH (08:33)
[2022-04-17] MEDS: MAGNESIUM OXIDE 400 MG TAB PO SCH (08:33)
[2022-04-17] MEDS: VITAMIN B COMPLEX TAB PO SCH (08:33)
--- NOTE | 2022-04-17 15:29 | Hospitalist Progress Note ---
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 Admitting procal and lactate wnl Admitting UA s/o UTI, U Cx no growth. Admitting Bl Cx no growth so far. c/w rocephin 04/15 (2) Weakness: Plan: Likely multifactorial - PT/OT - Fall precatations (3) Confusion: Plan: Worsening of chronic dementia, likely due to #1 AOx3, resolved. (4) Frontotemporal dementia with behavioral disturbance: Plan: Pt's dementia is worsening. His has realistic expectations of the anticipated clinical course - she reports that she has been trying to arrange outpatient palliative care evaluation and possible hospice if that is recommended. Palliative care consulted. Goals of care and most appropriate discharge services will need to be determined. #. Other chronic medical conditions: Parkinsonism, prostate cancer [completed radiation 2 months ago], HTN, HLD, GERD, cardiomyopathy Continue with/resume home meds as and when appropriate. #. DVT prophylaxis: Hep SQ, monitor Hb. #. Dispo: expect dc in next 1-2 days. PT/OT recs is home. CM to assist w/ dc planning. Admission and Anticipated Discharge Date Admission Date: April 15, 2022 Subjective Patient seen and examined at bedside for follow-up of UTI, confusion and history of frontotemporal dementia with behavioral disturbance, history of prostate cancer. Patient was sitting up in bed, on room air, NAD, AOx3, no new acute events overnight per patient. Patient reports eating and moving bowels okay. Pt reports blood in urine at baseline. Hb has been stable around 11-13. Patient denies any headache/dizziness/chest pain/palpitations/belly pain/other review of symptoms. Physical Exam Physical Exam: GENERAL: Alert and oriented x3. NAD, on RA. HEENT: No pallor, no icterus. Pupils equal, round and reactive to light. Oral mucosa moist. NECK: No JVD, no neck masses. HEART: S1 and S2 heard. Regular rate and rhythm. No murmur, no gallop. RESPIRATORY SYSTEM: Normal AP diameter. No accessory muscle use. No wheezing, no crackles. ABDOMEN: Soft, bowel sounds present, nontender, no distention. CENTRAL NERVOUS SYSTEM: No facial droop. Speech is clear. Obeys simple commands. Moves extremities. EXTREMITIES: No edema, no erythema seen. exam: no trauma noted, no blood noted in the diaper. Results & Data Results & Data ([facility]) Vital Signs (Past 12 Hours) Vital Signs Temp Pulse Pulse Resp BP BP Pulse Ox 04/17/22 11:29 36.4 C L 75 16 116/74 97 04/17/22 08:00 69 04/17/22 07:33 36.5 C 66 18 116/75 97 04/17/22 04:15 36.4 C L 87 18 102/66 98 (1) UTI (urinary tract infection) Hematuria presence: with hematuria Urinary tract infection type: acute cystitis Qualified Code(s): N30.01 - Acute cystitis with hematuria
[2022-04-17] MEDS: ATORVASTATIN 20 MG TAB PO SCH (21:36)
[2022-04-17] MEDS: clonazePAM 1 MG TAB PO SCH (21:36)
[2022-04-17] MEDS: METOPROLOL SUCC 25MG EXT REL TAB PO SCH (21:37)
[2022-04-17] MEDS: GABAPENTIN 100 MG CAP PO SCH (21:37)
[2022-04-18 06:08] LABS: Hematocrit (blood only) 36.6 % (42-52); Hemoglobin 12.2 g/dL (14.0-18.0); Mean Corpuscular Hemoglobin 32.1 pg (25-34); Mean Corpuscular Hgb Conc 33.3 g/dL (32-36); Mean Corpuscular Volume 96.3 fL (80-100); Mean Platelet Volume 8.5 fL (7.4-10.4); Platelet Count 134 K/uL (130-400); RDW Standard Deviation 49.6 fL (36.4-46.3)
[2022-04-18 06:25] LABS: BUN Creatinine Ratio 30.9 (10-20); Calcium 8.8 mg/dl (8.5-10.1); Creatinine Clr Calc Pharmacy 85.6 ml/min; Est GFR (African American) 106.6 ml/min; Magnesium 1.8 mg/dl (1.7-2.4); Potassium 4.2 mmol/L (3.5-5.1)
[2022-04-18] MEDS: cefTRIAXone SODIUM 1,000 MG in DEXTROSE 5% 50 ML IV SCH (07:32)
[2022-04-18] MEDS: METOPROLOL SUCC 50MG EXT REL TAB PO SCH ×2 (08:55→20:06)
[2022-04-18] MEDS: PANTOprazole 40 MG TAB PO SCH (08:56)
[2022-04-18] MEDS: DULoxetine HCL 60 MG CAP PO SCH (08:56)
[2022-04-18] MEDS: VITAMIN B COMPLEX TAB PO SCH (08:56)
[2022-04-18] MEDS: HEPARIN SOD 5,000 UNIT/0.5 ML VIAL SQ SCH ×2 (08:56→20:09)
[2022-04-18] MEDS: MAGNESIUM OXIDE 400 MG TAB PO SCH (08:56)
[2022-04-18] MEDS: DIVALPROEX DELAY RELEASE 500 MG TAB PO SCH ×2 (08:56→20:05)
[2022-04-18] MEDS: FLUTICASONE/VILANTEROL 200/25MCG 14 PUFFS/INHALER INH SCH (08:56)
[2022-04-18] MEDS: ZINC SULFATE 220 MG CAPSULE PO SCH (09:00)
--- NOTE | 2022-04-18 12:43 | Palliative Care Consultation ---
Date of Consultation April 18, 2022 Assessment & Plan (1) Weakness: Functional decline with frequent falls. His and son, David, have been caring for him at home. Mrs. Lauren, is concerned that he requires higher level of care than they can maintain at home. She has health problems of her own and their son provides pretty much 24/7 care. (2) Palliative care encounter: I met with Mrs. Lauren at bedside. She notes that "Al" did very well at [facility] and seemed happy. She feels that he would benefit from snf placement but children do not feel that he's ready for that. She is concerned that he could have a serious injury with a fall at home or that family could be injured while trying to care for him. She also wonders about whether he benefits from repeated rehab as his functional capacity never returns to the previous level and quickly declines after rehab. She tells me that Jorge has a living will and would not want resuscitation, artificial feeding or even hydration if he did not have any quality of life. We talked about what that meant to Jorge. She says that he likes to fish and be outside. He enjoys watching birds and nature. She has been hoping that he would be able to fish one more time. He does have a POLST form which indicates no CPR, comfort measures only. She does want antibiotics at this time and does not want aggressive measures for his care but would like for him to have rehab again after this hospital stay to reach his full potential and see if he is able to go fishing. 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 I offered a family meeting with her and the children to facilitate discussion about this. She would prefer to talk with them first. Discussed with case management. We will follow up. (3) UTI (urinary tract infection): (4) Frontotemporal dementia with behavioral disturbance: (5) Prostate cancer: (6) Cardiomyopathy: History of Present Illness Reason for Consultation: goals of care Requesting Physician: Marycarmen Sinha PAC Attending Physician: Bj Curry MD History of Present Illness 66 yo gentleman with frontotemporal dementia and prostate cancer s/p radiation treatment admitted with a UTI. He has frequent falls at home and was hospitalized in February after a fall. He had short term rehab at [facility] and per his , had been doing really well there. He eventually returned home and she noticed that his functional capacity was declining and he had urinary complaints. At his baseline, he is conversant though confused, not oriented to place or time and combative at times. He is ambulatory with frequent falls. At the time of visit, he is sleeping and does not arouse to stimulation. He appears comfortable. Allergies Allergy/AdvReac Type Severity Reaction Status Date / Time latex Allergy Intermediate RASH Verified 04/15/22 16:05 haloperidol AdvReac Intermediate PSYCHOSIS Verified 04/15/22 16:05 lactose AdvReac Intermediate GI UPSET Verified 04/15/22 16:05 WITH MILK PRODUCTS midazolam AdvReac Intermediate PSYCHOSIS Verified 04/15/22 16:05 risperidone AdvReac Intermediate HALLUCINATI Verified 04/15/22 16:05 ON Home Medications Medication Instructions Recorded Confirmed Type atorvastatin 20 mg tablet 20 mg PO HS 08/16/18 04/15/22 History clonazepam 1 mg tablet 1 mg PO HS 08/16/18 04/15/22 History gabapentin 100 mg capsule 200 mg PO HS 08/16/18 04/15/22 History omeprazole 20 mg capsule,delayed 20 mg PO DAILY 08/16/18 04/15/22 History release metoprolol succinate 50 mg 50 mg PO BID 11/06/19 04/15/22 History tablet,extended release 24 hr albuterol sulfate 90 mcg/actuation 2 puff INHALATION Q4H PRN g 09/13/21 History aerosol inhaler (Ventolin HFA) divalproex 500 mg tablet,delayed 1,000 mg PO AMHS tab 09/13/21 04/15/22 History release (Depakote) magnesium oxide 400 mg PO DAILY 09/13/21 04/15/22 History metoprolol succinate 25 mg 25 mg PO QPM 09/13/21 04/15/22 History tablet,extended release 24 hr riboflavin (vitamin B2) 400 mg 400 mg PO DAILY 09/13/21 04/15/22 History tablet vitamin B complex (B 1 tab PO DAILY 09/13/21 04/15/22 History Complex-Vitamin B12) zinc gluconate 50 mg tablet 50 mg PO DAILY 09/13/21 04/15/22 History duloxetine 60 mg capsule,delayed 60 mg PO QAM 04/15/22 04/15/22 History release fluticasone propionate 115 2 inh INHALATION BID 04/15/22 04/15/22 History mcg-salmeterol 21 mcg/actuation HFA inhaler (Advair HFA) Patient History Medical History Cardiac defibrillator in place (2009) Cardiomyopathy NONISCHEMIC, S/P AICD PLACED IN 2009. Dementia IS THE PERSON WHOM TO SPEAK TO. STATES HE GETS VERY UPSET WITH SOMEONE ASKING QUESTIONS. BEHAVIORIAL VARIANCE FRONTAL TEMPORAL-F/U DR GONZALEZ; Essential tremor BOTH HANDS - STATES HAS DIFFICULTY HOLDING ONTO THINGS Fall GERD (gastroesophageal reflux disease) History of colon polyps History of melanoma Left Arm Hyperlipidemia Hypertension ICD (implantable cardioverter-defibrillator) in place [employer]. LAST INTERROGATION 09/22/19. NORMAL FUNCTION. STABLE PACING AND SENSING THRESHOLDS. NO SHOCKS. Osteoarthritis Pacemaker (2009) Parkinsonism D/T FRONTAL DEMENTIA; SHUFFLES FEET WITH WALKING AND STUMBLES - USES WALKING STICK Postural hypotension STATES HE GETS DIZZY WHEN STANDING Prostate cancer (08/02/21) Weakness Surgical History History of anesthesia reaction PER PATIENT'S , PT GETS VERY CONFUSED AND IS SLOW TO WAKE UP History of cardiac cath MULTIPLE. NO STENTS. LAST HEART CATH ~2014. History of colonoscopy (08/20/18) History of left inguinal hernia repair (05/26/19) History of prostate biopsy (08/02/21) Dr. Francisco Gardiner at [facility] Hx of melanoma excision (2011) Left Arm Presence of combination internal cardiac defibrillator (ICD) and pacemaker (2009) PLACED 2009. [employer]. Family History Father , Passed at 60 Melanoma Mother , Passed Age 90's No problems noted. Sister No problems noted. Brother No problems noted. Son Melanoma, Onset Age: 22 pre-cancerous area removed Daughter No problems noted. 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 How many Children do You have: 2 Other Information That Helps Us Care for You: No other: patient with history of dementia Feels Safe at Home: Yes Safety Concerns: Feels Safe At This Time Childhood Exposure to Second-Hand Smoke: Yes caffeine: Yes (coffee in AM) during the past year weight has: remained stable Dental Care, Regularly: No Assistive Devices: Walker Review of Systems Review of Systems: Unobtainable due to cognitive status Towner Symptom Assessment Scale Pain AD 0/3 Dyspnea by RDOS 0/3 Physical Exam Constitutional: no acute distress Respiratory: normal respiratory effort; no labored breathing Cardiovascular: Rate/Rhythm: regular rate and regular rhythm Musculoskeletal: Extremities: extremities normal to inspection Results & Data ([facility]) Vital Signs (Past 12 Hours) Vital Signs Temp Pulse Resp BP Pulse Ox 04/18/22 07:00 97.3 F L 68 18 127/78 97 PG Care Time/CCT Total # of Minutes Spent Total Time Spent: 65 Total Time Spent with Patient: Total time spent is greater than 50% in coordination of care (as documented) at patient's floor/unit and/or counseling patient: goals of care, family education and support, coordination of care Coding Level of Care Code 92914 Initial Inpt Care Lvl 2 Diagnoses Weakness R53.1 Palliative care encounter Z51.5 Frontotemporal dementia with behavioral disturbance G31.09; F02.81 Prostate cancer C61 UTI (urinary tract infection) N39.0 Cardiomyopathy I42.9
--- NOTE | 2022-04-18 14:45 | Urology Consultation ---
Date of Consultation April 18, 2022 Assessment & Plan (1) Hematuria: 66yo M with a hx of prostate cancer s/p radiation admitted with generalized weakness, suspected UTI, and hematuria. - Plan of care and imaging reviewed with Dr. Ball, on-call urologist. - CTAP reviewed -Mod to severe bladder wall thickening w/surrounding fat stranding/edema, likely represents cystitis, no hydronephrosis, punctate b/l renal stones. - Afebrile, hemodynamically stable. - Labs reviewed - Wbc 4.70, Creatinine 0.81. - Urine culture 04/15 negative, Blood cultures 04/15 preliminary no growth x 48 hours. - Continues on IV Ceftriaxone, follow cultures. - Voiding spontaneously, mostly incontinent. Bladder scan volumes ranging 200- 300ml - Continue to monitor, bladder scan prn. - Hematuria likely secondary to prior radiation therapy. - Will need to complete a hematuria workup with cystoscopy as outpatient for further evaluation. - Patient follows with [facility] urology, can continue care with their service following discharge. - Urology will sign-off. Please contact us with any further questions, concerns, or changes in patient status. History of Present Illness Reason for Consultation: fam wish, recent prostrate cs Tx, uti, hematuria Attending Physician: Bj Curry MD History of Present Illness 66 year-old male with hx of COPD, HLD, NICM, NSVT s/p ICD, Prostate ca s/p radiation (currently on Eligard), HTN, Thrombocytopenia, Frontotemporal dementia, RLS, BPH admitted for worsening generalized weakness and UTI. Urology consulted for hematuria, urinary symptoms. Per chart review, patient having ongoing issues with urinary symptoms since completing radiation therapy at the end of January including increased hematuria and difficulty with urination. He typically follows with Dr. Gardiner with [facility] Urology. Chart review- Afebrile Wbc 4.70 Hgb 12.2 Cr 0.81 Urinalysis on admit with 3+blood, 3+leukocytes, >30WBC, 10-30RBC, negative bacteria, negative nitrite. Urine culture 04/15 negative. Blood cultures 04/15 preliminary no growth x 48 hours. On IV Ceftriaxone. CT abdomen pelvis - 1. Moderate to severe bladder wall thickening with surrounding fat stranding/edema. This has progressed in the interval and likely represents a cystitis. Recommend correlation with urinalysis. 2. No bowel wall thickening or obstruction. 3. Normal appendix. 4. Punctate bilateral renal calculi. No ureteral calculi. No hydronephrosis. 5. Healing left anterior rib fractures. No acute fractures identified. Pt examined at bedside this afternoon. Asleep on arrival, awakened to name. No acute distress. Reports he feels "tired." Answered some yes/no questions but would then fall back asleep. Denied significant pain. Denied fevers or chills. Denied nausea or vomiting. Notes that he does have hematuria, but offered no additional details. Per chart review, pt is voiding spontaneously, mostly incontinent and wears brief. Bladder scan volumes 200-300ml. Allergies Allergy/AdvReac Type Severity Reaction Status Date / Time latex Allergy Intermediate RASH Verified 04/15/22 16:05 haloperidol AdvReac Intermediate PSYCHOSIS Verified 04/15/22 16:05 lactose AdvReac Intermediate GI UPSET Verified 04/15/22 16:05 WITH MILK PRODUCTS midazolam AdvReac Intermediate PSYCHOSIS Verified 04/15/22 16:05 risperidone AdvReac Intermediate HALLUCINATI Verified 04/15/22 16:05 ON Home Medications Medication Instructions Recorded Confirmed Type atorvastatin 20 mg tablet 20 mg PO HS 08/16/18 04/15/22 History clonazepam 1 mg tablet 1 mg PO HS 08/16/18 04/15/22 History gabapentin 100 mg capsule 200 mg PO HS 08/16/18 04/15/22 History omeprazole 20 mg capsule,delayed 20 mg PO DAILY 08/16/18 04/15/22 History release metoprolol succinate 50 mg 50 mg PO BID 11/06/19 04/15/22 History tablet,extended release 24 hr albuterol sulfate 90 mcg/actuation 2 puff INHALATION Q4H PRN g 09/13/21 04/15/22 History aerosol inhaler (Ventolin HFA) divalproex 500 mg tablet,delayed 1,000 mg PO AMHS tab 09/13/21 04/15/22 History release (Depakote) magnesium oxide 400 mg PO DAILY 09/13/21 04/15/22 History metoprolol succinate 25 mg 25 mg PO QPM 09/13/21 04/15/22 History tablet,extended release 24 hr riboflavin (vitamin B2) 400 mg 400 mg PO DAILY 09/13/21 04/15/22 History tablet vitamin B complex (B 1 tab PO DAILY 09/13/21 04/15/22 History Complex-Vitamin B12) zinc gluconate 50 mg tablet 50 mg PO DAILY 09/13/21 04/15/22 History duloxetine 60 mg capsule,delayed 60 mg PO QAM 04/15/22 04/15/22 History release fluticasone propionate 115 2 inh INHALATION BID 04/15/22 04/15/22 History mcg-salmeterol 21 mcg/actuation HFA inhaler (Advair HFA) Patient History Medical History (Updated 04/18/22 @ 15:19 by PATTIE Barakat) Cardiac defibrillator in place (2009) Cardiomyopathy NONISCHEMIC, S/P AICD PLACED IN 2009. Dementia IS THE PERSON WHOM TO SPEAK TO. STATES HE GETS VERY UPSET WITH SOMEONE ASKING QUESTIONS. BEHAVIORIAL VARIANCE FRONTAL TEMPORAL-F/U DR GONZALEZ; Essential tremor BOTH HANDS - STATES HAS DIFFICULTY HOLDING ONTO THINGS Fall GERD (gastroesophageal reflux disease) Hematuria History of colon polyps History of melanoma Left Arm Hyperlipidemia Hypertension ICD (implantable cardioverter-defibrillator) in place [employer]. LAST INTERROGATION 09/22/19. NORMAL FUNCTION. STABLE PACING AND SENSING THRESHOLDS. NO SHOCKS. Osteoarthritis Pacemaker (2009) Parkinsonism D/T FRONTAL DEMENTIA; SHUFFLES FEET WITH WALKING AND STUMBLES - USES WALKING STICK Postural hypotension STATES HE GETS DIZZY WHEN STANDING Prostate cancer (08/02/21) Weakness Surgical History History of anesthesia reaction PER PATIENT'S , PT GETS VERY CONFUSED AND IS SLOW TO WAKE UP History of cardiac cath MULTIPLE. NO STENTS. LAST HEART CATH ~2014. History of colonoscopy (08/20/18) History of left inguinal hernia repair (05/26/19) History of prostate biopsy (08/02/21) Dr. Francisco Gardiner at [facility] Hx of melanoma excision (2011) Left Arm Presence of combination internal cardiac defibrillator (ICD) and pacemaker (2009) PLACED 2009. [employer]. Family History Father , Passed at 60 Melanoma Mother , Passed Age 90's No problems noted. Sister No problems noted. Brother No problems noted. Son Melanoma, Onset Age: 22 pre-cancerous area removed Daughter No problems noted. Other No family history of adverse response to anesthesia Social History Smoking Status: Never smoker Tobacco Type: Cigarettes Second Hand Exposure: No; Do You Dip or Chew Tobacco: No; Tobacco Cessation Education Requested by Patient: No Hx Alcohol Use: No Hx Substance Use: No Preferred Language: Citizen Of [place] Communication Ability: Effective Visual Impairment: Limited Hearing Ability: Hard of Hearing Implementation Specialist Required: No Beliefs That Will Affect Care: None marital status: Current Living Situation: Alone and Spouse Current Living Situation Comment: is caregiver current occupational status: retired 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 How many Children do You have: 2 Other Information That Helps Us Care for You: No other: patient with history of dementia Feels Safe at Home: Yes Safety Concerns: Feels Safe At This Time Childhood Exposure to Second-Hand Smoke: Yes caffeine: Yes (coffee in AM) during the past year weight has: remained stable Dental Care, Regularly: No Assistive Devices: Walker Review of Systems Review of Systems: Unobtainable due to cognitive status Physical Exam Constitutional: comfortable; no acute distress Neck: normal visual inspection Respiratory: no respiratory distress and no labored breathing Gastrointestinal (Abdomen): Inspection/Auscultation: abdomen normal to inspection Musculoskeletal: Head/Neck/Chest: normocephalic Skin: No visible rashes or lesions Neurologic: Asleep on arrival, but arousable. Answered some yes/no questions. Psychiatric: Orientation: alert, oriented to person and cooperative Results & Data ([facility]) Vital Signs (Past 12 Hours) Vital Signs Temp Pulse Resp BP Pulse Ox 04/18/22 07:00 36.3 C L 68 18 127/78 97 PG Care Time/CCT Total # of Minutes Spent Total Time Spent with Patient: Total time spent is greater than 50% in coordination of care (as documented) at patient's floor/unit and/or counseling patient: Coding Level of Care Code 43683 Initial Inpt Care Lvl 2 Diagnoses Hematuria R31.9
--- NOTE | 2022-04-18 15:14 | Hospitalist Progress Note ---
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 Admitting procal and lactate wnl Admitting UA s/o UTI, U Cx no growth. Admitting Bl Cx no growth so far. c/w rocephin 04/15 (2) Weakness: Plan: Likely multifactorial - PT/OT - Fall precatations - expresses concerns for the ability to take care at home, will likely need placement. (3) Confusion: #. Metabolic encephalopathy Plan: Worsening of chronic dementia, likely due to #1 AOx3, resolved. (4) Frontotemporal dementia with behavioral disturbance: Plan: Pt's dementia is worsening. His has realistic expectations of the anticipated clinical course - she reports that she has been trying to arrange outpatient palliative care evaluation and possible hospice if that is recommended. Palliative care consulted. Goals of care and most appropriate discharge services will need to be determined. #. Other chronic medical conditions: Parkinsonism, prostate cancer [completed radiation 2 months ago], HTN, HLD, GERD, cardiomyopathy Continue with/resume home meds as and when appropriate. Pt's wishes urology eval while in hospital as pt is due for uro f/u after completing radiation on February 16 and is having mild hematuria at baseline. #. DVT prophylaxis: Hep SQ, monitor Hb. #. Dispo: expect dc in next 1-2 days. PT/OT recs is home. CM to assist w/ dc planning. Admission and Anticipated Discharge Date Admission Date: April 15, 2022 Subjective Patient seen and examined at bedside for follow-up of UTI, confusion and history of frontotemporal dementia with behavioral disturbance, history of prostate cancer. Patient was sitting up in bed ready to eat lunch, on room air, NAD, AOx3, no new acute events overnight per patient. Patient reports eating and moving bowels okay. Per RN urine doesn't look grossly hematuric, diapers with no hematuria stains. Hb has been stable around 11-12. Patient denies any headache/dizziness/chest pain/palpitations/belly pain/other review of symptoms. Physical Exam Physical Exam: GENERAL: Alert and oriented x3. NAD, on RA. HEENT: No pallor, no icterus. Pupils equal, round and reactive to light. Oral mucosa moist. NECK: No JVD, no neck masses. HEART: S1 and S2 heard. Regular rate and rhythm. No murmur, no gallop. RESPIRATORY SYSTEM: Normal AP diameter. No accessory muscle use. No wheezing, no crackles. ABDOMEN: Soft, bowel sounds present, nontender, no distention. CENTRAL NERVOUS SYSTEM: No facial droop. Speech is clear. Obeys simple comm ands. Moves extremities. EXTREMITIES: No edema, no erythema seen. exam: no trauma noted, no blood noted in the diaper. Results & Data Results & Data ([facility]) Vital Signs (Past 12 Hours) Vital Signs Temp Pulse Resp BP Pulse Ox 04/18/22 07:00 36.3 C L 68 18 127/78 97 (1) UTI (urinary tract infection) Hematuria presence: with hematuria Urinary tract infection type: acute cystitis Qualified Code(s): N30.01 - Acute cystitis with hematuria
[2022-04-18] MEDS: GABAPENTIN 100 MG CAP PO SCH (20:05)
[2022-04-18] MEDS: ATORVASTATIN 20 MG TAB PO SCH (20:06)
[2022-04-18] MEDS: METOPROLOL SUCC 25MG EXT REL TAB PO SCH (20:08)
[2022-04-18] MEDS: clonazePAM 1 MG TAB PO SCH (20:11)
[2022-04-19] MEDS: cefTRIAXone SODIUM 1,000 MG in DEXTROSE 5% 50 ML IV SCH (06:11)
[2022-04-19 06:50] LABS: Hematocrit (blood only) 42.1 % (42-52); Hemoglobin 13.9 g/dL (14.0-18.0); Mean Corpuscular Hemoglobin 32.2 pg (25-34); Mean Corpuscular Volume 97.5 fL (80-100); Mean Platelet Volume 8.7 fL (7.4-10.4); Platelet Count 186 K/uL (130-400); RDW Coefficient of Variation 13.9 % (11.5-14.5); RDW Standard Deviation 49.9 fL (36.4-46.3); Red Blood Count 4.32 M/uL (4.7-6.1)
[2022-04-19] MEDS: DIVALPROEX DELAY RELEASE 500 MG TAB PO SCH ×2 (09:10→20:04)
[2022-04-19] MEDS: ZINC SULFATE 220 MG CAPSULE PO SCH (09:10)
[2022-04-19] MEDS: HEPARIN SOD 5,000 UNIT/0.5 ML VIAL SQ SCH ×2 (09:10→20:04)
[2022-04-19] MEDS: METOPROLOL SUCC 50MG EXT REL TAB PO SCH ×2 (09:10→20:08)
[2022-04-19] MEDS: DULoxetine HCL 60 MG CAP PO SCH (09:10)
[2022-04-19] MEDS: VITAMIN B COMPLEX TAB PO SCH (09:10)
[2022-04-19] MEDS: FLUTICASONE/VILANTEROL 200/25MCG 14 PUFFS/INHALER INH SCH (09:10)
[2022-04-19] MEDS: MAGNESIUM OXIDE 400 MG TAB PO SCH (09:10)
[2022-04-19] MEDS: PANTOprazole 40 MG TAB PO SCH (09:10)
--- NOTE | 2022-04-19 19:51 | Hospitalist Progress Note ---
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 Admitting procal and lactate wnl Admitting UA s/o UTI, U Cx no growth. Admitting Bl Cx no growth so far. c/w rocephin 04/15 (2) Weakness: Plan: Likely multifactorial - PT/OT - Fall precatations - expresses concerns for the ability to take care at home, will likely need placement. (3) Confusion: #. Metabolic encephalopathy Plan: Worsening of chronic dementia, likely due to #1 AOx3, resolved. (4) Frontotemporal dementia with behavioral disturbance: Plan: Pt's dementia is worsening. His has realistic expectations of the anticipated clinical course - she reports that she has been trying to arrange outpatient palliative care evaluation and possible hospice if that is recommended. Palliative care consulted. Goals of care and most appropriate discharge services will need to be determined. #. Other chronic medical conditions: Parkinsonism, prostate cancer [completed radiation 2 months ago], HTN, HLD, GERD, cardiomyopathy Continue with/resume home meds as and when appropriate. Pt's wishes urology eval while in hospital as pt is due for uro f/u after completing radiation on February 16 and is having mild hematuria at baseline. Uro evaled, appreciate recs. #. DVT prophylaxis: Hep SQ, monitor Hb. #. Dispo: Medically stable for DC. PT/OT recs is home. CM to assist w/ dc planning. Admission and Anticipated Discharge Date Admission Date: April 15, 2022 Subjective Patient seen and examined at bedside for follow-up of UTI, confusion and history of frontotemporal dementia with behavioral disturbance, history of prostate cancer. Patient was sitting up in bed ready to eat lunch, on room air, NAD, AOx3, no new acute events overnight per patient. Patient reports eating and moving bowels okay. Diapers with no hematuria stains. Hb has been stable around 11-12. Patient denies any headache/dizziness/chest pain/palpitations/belly pain/other review of symptoms. Physical Exam Physical Exam: GENERAL: Alert and oriented x3. NAD, on RA. HEENT: No pallor, no icterus. Pupils equal, round and reactive to light. Oral mucosa moist. NECK: No JVD, no neck masses. HEART: S1 and S2 heard. Regular rate and rhythm. No murmur, no gallop. RESPIRATORY SYSTEM: Normal AP diameter. No accessory muscle use. No wheezing, no crackles. ABDOMEN: Soft, bowel sounds present, nontender, no distention. CENTRAL NERVOUS SYSTEM: No facial droop. Speech is clear. Obeys simple commands. Moves extremities. EXTREMITIES: No edema, no erythema seen. exam: no trauma noted, no blood noted in the diaper. Results & Data Results & Data ([facility]) Vital Signs (Past 12 Hours) Vital Signs Temp Pulse Pulse Resp BP Pulse Ox 04/19/22 18:37 36.7 C 76 18 129/77 96 04/19/22 11:59 36.6 C 66 16 110/68 96 (1) UTI (urinary tract infection) Hematuria presence: with hematuria Urinary tract infection type: acute cystitis Qualified Code(s): N30.01 - Acute cystitis with hematuria
[2022-04-19] MEDS: GABAPENTIN 100 MG CAP PO SCH (20:04)
[2022-04-19] MEDS: ATORVASTATIN 20 MG TAB PO SCH (20:04)
[2022-04-19] MEDS: clonazePAM 1 MG TAB PO SCH (20:04)
[2022-04-19] MEDS: METOPROLOL SUCC 25MG EXT REL TAB PO SCH (20:08)
[2022-04-20] MEDS: cefTRIAXone SODIUM 1,000 MG in DEXTROSE 5% 50 ML IV SCH (06:02)
[2022-04-20 06:48] LABS: Hematocrit (blood only) 38.6 % (42-52); Hemoglobin 12.7 g/dL (14.0-18.0)
[2022-04-20] MEDS: DIVALPROEX DELAY RELEASE 500 MG TAB PO SCH ×2 (09:23→20:21)
[2022-04-20] MEDS: HEPARIN SOD 5,000 UNIT/0.5 ML VIAL SQ SCH ×2 (09:24→20:21)
[2022-04-20] MEDS: MAGNESIUM OXIDE 400 MG TAB PO SCH (09:24)
[2022-04-20] MEDS: DULoxetine HCL 60 MG CAP PO SCH (09:24)
[2022-04-20] MEDS: ZINC SULFATE 220 MG CAPSULE PO SCH (09:24)
[2022-04-20] MEDS: METOPROLOL SUCC 50MG EXT REL TAB PO SCH ×2 (09:24→20:25)
[2022-04-20] MEDS: VITAMIN B COMPLEX TAB PO SCH (09:24)
[2022-04-20] MEDS: PANTOprazole 40 MG TAB PO SCH (09:24)
[2022-04-20] MEDS: FLUTICASONE/VILANTEROL 200/25MCG 14 PUFFS/INHALER INH SCH (09:24)
--- NOTE | 2022-04-20 13:07 | Palliative Care Progress Note ---
Date of Service April 20, 2022 Assessment & Plan (1) Palliative care encounter: Plan: Al understands that transfer to SNF would likely be custodial. His is not physically able to care for him at home. She discussed this with the children who are not enthusiastic, but acknowledge that this is the best thing at this time. We reviewed the POLST form that is on the chart which indicates comfort measures only. Jennifer has said that she is not ready for him to "be on hospice". I don't think he's appropriate for hospice at this time. She is certain that he would not want custodial artificial nutrition or hydration, but would be agreeable to short term IVF if needed. She would prefer to minimize hospitalizations if possible but would want hospitalization for treatable conditions if indicated. They are able to have meaningful conversations at times and enjoy spending time together. POLST form completed for DNR/DNI, limited interventions, trial of antibiotics and artificial hydration. Reviewed with Jennifer and signed. Copy on chart. (2) Frontotemporal dementia with behavioral disturbance: (3) Prostate cancer: (4) Cardiomyopathy: (5) UTI (urinary tract infection): Admission and Anticipated Discharge Date Admission Date: April 15, 2022 Subjective Awake. Visiting with his . Denies pain or discomfort. He is aware of plan for discharge to SNF and expresses concern about going to [facility] "because its far from [place]". Review of Systems Review of Systems: [place] Symptom Assessment Scale Pain 0/3 Dyspnea 0/3 Anxiety 0/3 Fatigue 1/3 Nausea 0/3 Drowsiness 0/3 Palliative Performance Score 50% Physical Exam Constitutional: no acute distress ENMT: Mouth: oral mucous membranes not dry Respiratory: normal respiratory effort; no labored breathing Gastrointestinal (Abdomen): Inspection/Auscultation: abdomen not distended Musculoskeletal: Extremities: extremities normal to inspection Neurologic: awake and + confused Results & Data ([facility]) Vital Signs (Past 12 Hours) Vital Signs Temp Pulse Resp BP Pulse Ox 04/20/22 07:15 97.7 F 67 16 112/74 95 PG Care Time/CCT Total # of Minutes Spent Total Time Spent: 35 Total Time Spent with Patient: Total time spent is greater than 50% in coordination of care (as documented) at patient's floor/unit and/or counseling patient: Coding Level of Care Code 71316 Subseq Hosp Care Lvl 3 Diagnoses Palliative care encounter Z51.5 Frontotemporal dementia with behavioral disturbance G31.09; F02.81 Prostate cancer C61 Cardiomyopathy I42.9 UTI (urinary tract infection) N39.0
--- NOTE | 2022-04-20 19:15 | Hospitalist Progress Note ---
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 Admitting procal and lactate wnl Admitting UA s/o UTI, U Cx no growth. Admitting Bl Cx no growth so far. c/w rocephin 04/15 (2) Weakness: Plan: Likely multifactorial - PT/OT - Fall precatations - expresses concerns for the ability to take care at home, will likely need placement. (3) Confusion: #. Metabolic encephalopathy Plan: Worsening of chronic dementia, likely due to #1 AOx3, resolved. (4) Frontotemporal dementia with behavioral disturbance: Plan: Pt's dementia is worsening. His has realistic expectations of the anticipated clinical course - she reports that she has been trying to arrange outpatient palliative care evaluation and possible hospice if that is recommended. Palliative care consulted. Goals of care and most appropriate discharge services will need to be determined. #. Other chronic medical conditions: Parkinsonism, prostate cancer [completed radiation 2 months ago], HTN, HLD, GERD, cardiomyopathy Continue with/resume home meds as and when appropriate. Pt's wishes urology eval while in hospital as pt is due for uro f/u after completing radiation on February 16 and is having mild hematuria at baseline. Uro evaled, appreciate recs. #. DVT prophylaxis: Hep SQ, monitor Hb. #. Dispo: Medically stable for DC. PT/OT recs is home. CM to assist w/ dc planning. Admission and Anticipated Discharge Date Admission Date: April 15, 2022 Subjective Patient seen and examined at bedside for follow-up of UTI, confusion and history of frontotemporal dementia with behavioral disturbance, history of prostate cancer. Patient was sitting up in bed, on room air, NAD, AOx3, no new acute events overnight per patient. Patient reports eating and moving bowels okay. Diapers with no hematuria stains. Hb has been stable around 11-12. Patient denies any headache/dizziness/chest pain/palpitations/belly pain/other review of symptoms. Physical Exam Physical Exam: GENERAL: Alert and oriented x3. NAD, on RA. HEENT: No pallor, no icterus. Pupils equal, round and reactive to light. Oral mucosa moist. NECK: No JVD, no neck masses. HEART: S1 and S2 heard. Regular rate and rhythm. No murmur, no gallop. RESPIRATORY SYSTEM: Normal AP diameter. No accessory muscle use. No wheezing, no crackles. ABDOMEN: Soft, bowel sounds present, nontender, no distention. CENTRAL NERVOUS SYSTEM: No facial droop. Speech is clear. Obeys simple commands. Moves extremities. EXTREMITIES: No edema, no erythema seen. exam: no trauma noted, no blood noted in the diaper. Results & Data Results & Data ([facility]) Vital Signs (Past 12 Hours) Vital Signs Temp Pulse Resp BP Pulse Ox 04/20/22 14:57 36.9 C 74 16 124/74 96 04/20/22 07:15 36.5 C 67 16 112/74 95 (1) UTI (urinary tract infection) Hematuria presence: with hematuria Urinary tract infection type: acute cystitis Qualified Code(s): N30.01 - Acute cystitis with hematuria
[2022-04-20] MEDS: clonazePAM 1 MG TAB PO SCH (20:20)
[2022-04-20] MEDS: GABAPENTIN 100 MG CAP PO SCH (20:21)
[2022-04-20] MEDS: ATORVASTATIN 20 MG TAB PO SCH (20:21)
[2022-04-20] MEDS: METOPROLOL SUCC 25MG EXT REL TAB PO SCH (20:25)
[2022-04-21] MEDS: MAGNESIUM OXIDE 400 MG TAB PO SCH (08:51)
[2022-04-21] MEDS: ZINC SULFATE 220 MG CAPSULE PO SCH (08:51)
[2022-04-21] MEDS: PANTOprazole 40 MG TAB PO SCH (08:51)
[2022-04-21] MEDS: VITAMIN B COMPLEX TAB PO SCH (08:51)
[2022-04-21] MEDS: DIVALPROEX DELAY RELEASE 500 MG TAB PO SCH ×2 (08:51→21:52)
[2022-04-21] MEDS: DULoxetine HCL 60 MG CAP PO SCH (08:51)
[2022-04-21] MEDS: METOPROLOL SUCC 50MG EXT REL TAB PO SCH ×2 (08:51→21:52)
[2022-04-21] MEDS: HEPARIN SOD 5,000 UNIT/0.5 ML VIAL SQ SCH ×2 (08:52→21:52)
[2022-04-21] MEDS: FLUTICASONE/VILANTEROL 200/25MCG 14 PUFFS/INHALER INH SCH (08:52)
--- NOTE | 2022-04-21 17:15 | Hospitalist Progress Note ---
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 Admitting procal and lactate wnl Admitting UA s/o UTI, U Cx no growth. Admitting Bl Cx no growth 5 days. s/p rocephin course (2) Weakness: Plan: Likely multifactorial - PT/OT - Fall precatations - expresses concerns for the ability to take care at home, will likely need placement. (3) Confusion: #. Metabolic encephalopathy Plan: Worsening of chronic dementia, likely due to #1 AOx3, resolved. (4) Frontotemporal dementia with behavioral disturbance: Plan: Pt's dementia is worsening. His has realistic expectations of the anticipated clinical course - she reports that she has been trying to arrange outpatient palliative care evaluation and possible hospice if that is recommended. Palliative care consulted. Goals of care and most appropriate discharge services will need to be determined. #. Other chronic medical conditions: Parkinsonism, prostate cancer [completed radiation 2 months ago], HTN, HLD, GERD, cardiomyopathy Continue with/resume home meds as and when appropriate. Pt's wishes urology eval while in hospital as pt is due for uro f/u after completing radiation on February 16 and is having mild hematuria at baseline. Uro evaled, appreciate recs. #. DVT prophylaxis: Hep SQ, monitor Hb. #. Dispo: Medically stable for DC. PT/OT recs is home. CM to assist w/ dc planning. Admission and Anticipated Discharge Date Admission Date: April 15, 2022 Subjective Patient seen and examined at bedside for follow-up of UTI, confusion and history of frontotemporal dementia with behavioral disturbance, history of prostate cancer. Patient was sitting up in bed, on room air, NAD, AOx3, no new acute events overnight per patient. Patient reports eating and moving bowels okay. Diapers with no hematuria stains. Hb has been stable around 11-12. Patient denies any headache/dizziness/chest pain/palpitations/belly pain/other review of symptoms. Physical Exam Physical Exam: GENERAL: Alert and oriented x3. NAD, on RA. HEENT: No pallor, no icterus. Pupils equal, round and reactive to light. Oral mucosa moist. NECK: No JVD, no neck masses. HEART: S1 and S2 heard. Regular rate and rhythm. No murmur, no gallop. RESPIRATORY SYSTEM: Normal AP diameter. No accessory muscle use. No wheezing, no crackles. ABDOMEN: Soft, bowel sounds present, nontender, no distention. CENTRAL NERVOUS SYSTEM: No facial droop. Speech is clear. Obeys simple commands. Moves extremities. EXTREMITIES: No edema, no erythema seen. exam: no trauma noted, no blood noted in the diaper. Results & Data Results & Data ([facility]) Vital Signs (Past 12 Hours) Vital Signs Temp Pulse Resp BP BP Pulse Ox 04/21/22 15:08 36.6 C 75 18 117/75 95 04/21/22 08:54 75 123/79 04/21/22 07:14 36.4 C L 72 16 103/68 97 (1) UTI (urinary tract infection) Hematuria presence: with hematuria Urinary tract infection type: acute cystitis Qualified Code(s): N30.01 - Acute cystitis with hematuria
[2022-04-21] MEDS: GABAPENTIN 100 MG CAP PO SCH (21:51)
[2022-04-21] MEDS: ATORVASTATIN 20 MG TAB PO SCH (21:52)
[2022-04-21] MEDS: METOPROLOL SUCC 25MG EXT REL TAB PO SCH (21:52)
[2022-04-21] MEDS: clonazePAM 1 MG TAB PO SCH (21:52)
[2022-04-22 07:47] LABS: Hematocrit (blood only) 39.9 % (42-52); Hemoglobin 12.8 g/dL (14.0-18.0)
[2022-04-22] MEDS: FLUTICASONE/VILANTEROL 200/25MCG 14 PUFFS/INHALER INH SCH (09:17)
[2022-04-22] MEDS: PANTOprazole 40 MG TAB PO SCH (09:17)
[2022-04-22] MEDS: DULoxetine HCL 60 MG CAP PO SCH (09:17)
[2022-04-22] MEDS: ZINC SULFATE 220 MG CAPSULE PO SCH (09:18)
[2022-04-22] MEDS: HEPARIN SOD 5,000 UNIT/0.5 ML VIAL SQ SCH ×2 (09:18→20:27)
[2022-04-22] MEDS: VITAMIN B COMPLEX TAB PO SCH (09:18)
[2022-04-22] MEDS: DIVALPROEX DELAY RELEASE 500 MG TAB PO SCH ×2 (09:18→20:28)
[2022-04-22] MEDS: METOPROLOL SUCC 50MG EXT REL TAB PO SCH ×2 (09:18→20:28)
[2022-04-22] MEDS: MAGNESIUM OXIDE 400 MG TAB PO SCH (09:18)
--- NOTE | 2022-04-22 11:49 | Hospitalist Progress Note ---
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 Admitting procal and lactate wnl Admitting UA s/o UTI, Urine culture no growth. Admitting Blood culture with no growth s/p rocephin course (2) Weakness: Plan: Likely multifactorial. Continue fall precautions - PT recommended SNF- expresses concerns for the ability to take care at home, will need placement- CM assisting for the same (3) Confusion: #. Metabolic encephalopathy Plan: Worsening of chronic dementia, likely due to #1 AOx3, resolved. (4) Frontotemporal dementia with behavioral disturbance: Plan: Pt's dementia is worsening. His has realistic expectations of the anticipated clinical course - she reports that she has been trying to arrange o utpatient palliative care evaluation and possible hospice if that is recommended. Palliative care consulted. Goals of care and most appropriate discharge services will need to be determined. #. Other chronic medical conditions: Parkinsonism, prostate cancer [completed radiation 2 months ago], HTN, HLD, GERD, cardiomyopathy Continue with/resume home meds as and when appropriate. Pt's wishes urology eval while in hospital as pt is due for uro f/u after completing radiation on February 16 and is having mild hematuria at baseline. Uro evaluated, appreciate recommendations. #. DVT prophylaxis: Hep SQ, monitor Hb. #. Dispo: Medically stable for DC. PT recommended SNF- CM following- [facility]- Plan for discharge tomorrow Admission and Anticipated Discharge Date Admission Date: April 15, 2022 Subjective He feels okay. States he is ready to go home. Denies any fever, chills, nausea, vomiting, chest pain, shortness of breath. Physical Exam Physical Exam: General: Lying comfortably in bed, not in distress, on room air HEENT: EOMI, DENIS, MMM Chest: Clear breath sounds bilaterally, no wheezes or crackles CVS: Regular rate and rhythm, normal heart sounds, no murmur Abdomen: Soft, non tender, not distended, normal bowel sounds Neuro: Awake, alert, oriented, conversing well, non focal Extremities: No cyanosis, clubbing or edema Results & Data Results & Data ([facility]) Vital Signs (Past 12 Hours) Vital Signs Temp Pulse Resp BP Pulse Ox 04/22/22 07:12 36.6 C 67 18 130/84 99 Laboratory Results Short CBC 04/22/22 Range/Units 06:53 Hgb 12.8 L (14.0-18.0) g/dL Hct 39.9 L (42-52) % Medications Administered Current Inpatient Medications Acetaminophen (Acetaminophen 325 Mg Tab) 650 mg PO Q4H PRN PRN Reason: Pain or Fever Stop: 05/15/22 18:26 Albuterol (Albuterol Hfa 8 Gm Inhaler) 2 puffs INH Q4H PRN PRN Reason: Shortness Of Breath Or Wheezin Stop: 05/15/22 18:26 Atorvastatin Calcium (Atorvastatin 20 Mg Tab) 20 mg PO [facility] Stop: 05/15/22 20:59 Last Admin: 04/21/22 21:52 Dose: 20 mg Documented by: Clonazepam (Clonazepam 1 Mg Tab) 1 mg PO [facility] Stop: 05/15/22 20:59 Last Admin: 04/21/22 21:52 Dose: 1 mg Documented by: Divalproex Sodium (Divalproex Delay Release 500 Mg Tab) 1,000 mg PO BID [facility] Stop: 05/15/22 20:59 Last Admin: 04/22/22 09:18 Dose: 1,000 mg Documented by: Duloxetine HCl (Duloxetine Hcl 60 Mg Cap) 60 mg PO [facility] Stop: 05/16/22 08:59 Last Admin: 04/22/22 09:17 Dose: 60 mg Documented by: Fluticasone/Vilanterol (Fluticasone/Vilanterol 200/25mcg 14 Puffs/Inhaler) 1 puffs INH DAILY [facility] Stop: 05/16/22 08:59 Last Admin: 04/22/22 09:17 Dose: 1 puffs Documented by: Gabapentin (Gabapentin 100 Mg Cap) 200 mg PO [facility] Stop: 05/15/22 20:59 Last Admin: 04/21/22 21:51 Dose: 200 mg Documented by: Heparin Sodium (Porcine) (Heparin Sod 5,000 Unit/0.5 Ml Vial) 5,000 units SQ Q12 [facility] Stop: 05/15/22 20:59 Last Admin: 04/22/22 09:18 Dose: 5,000 units Documented by: Magnesium Oxide (Magnesium Oxide 400 Mg Tab) 400 mg PO DAILY [facility] Stop: 05/16/22 08:59 Last Admin: 04/22/22 09:18 Dose: 400 mg Documented by: Metoprolol Succinate (Metoprolol Succ 25mg Ext Rel Tab) 25 mg PO QPM [facility] Stop: 05/15/22 20:59 Last Admin: 04/21/22 21:52 Dose: 25 mg Documented by: Metoprolol Succinate (Metoprolol Succ 50mg Ext Rel Tab) 50 mg PO BID [facility] Stop: 05/15/22 20:59 Last Admin: 04/22/22 09:18 Dose: 50 mg Documented by: Pantoprazole Sodium (Pantoprazole 40 Mg Tab) 40 mg PO QAM LESTER Stop: 05/16/22 08:59 Last Admin: 04/22/22 09:17 Dose: 40 mg Documented by: Vitamin B Complex (Vitamin B Complex Tab) 1 tab PO DAILY [facility]STER Stop: 05/16/22 08:59 Last Admin: 04/22/22 09:18 Dose: 1 tab Documented by: Zinc Sulfate (Zinc Sulfate 220 Mg Capsule) 220 mg PO DAILY [facility]STER Stop: 05/16/22 08:59 Last Admin: 04/22/22 09:18 Dose: 220 mg Documented by: (1) UTI (urinary tract infection) Hematuria presence: with hematuria Urinary tract infection type: acute cystitis Qualified Code(s): N30.01 - Acute cystitis with hematuria
[2022-04-22] MEDS: clonazePAM 1 MG TAB PO SCH (20:27)
[2022-04-22] MEDS: GABAPENTIN 100 MG CAP PO SCH (20:28)
[2022-04-22] MEDS: METOPROLOL SUCC 25MG EXT REL TAB PO SCH (20:28)
[2022-04-22] MEDS: ATORVASTATIN 20 MG TAB PO SCH (20:50)
[2022-04-23 06:54] LABS: Hematocrit (blood only) 39.8 % (42-52); Hemoglobin 13.1 g/dL (14.0-18.0)
[2022-04-23 07:09] LABS: BUN Creatinine Ratio 37.8 (10-20); Calcium 9.1 mg/dl (8.5-10.1); Creatinine Clr Calc Pharmacy 84.6 ml/min; Est GFR (African American) 106.1 ml/min; Est GFR (Non-African American) 91.5 ml/min; Potassium 4.5 mmol/L (3.5-5.1)
[2022-04-23 07:28] VITALS: TEMP 97; O2SAT 94
[2022-04-23 09:14] VITALS: BP 114/77
[2022-04-23] MEDS: PANTOprazole 40 MG TAB PO SCH (09:15)
[2022-04-23] MEDS: ZINC SULFATE 220 MG CAPSULE PO SCH (09:15)
[2022-04-23] MEDS: METOPROLOL SUCC 50MG EXT REL TAB PO SCH (09:15)
[2022-04-23] MEDS: MAGNESIUM OXIDE 400 MG TAB PO SCH (09:15)
[2022-04-23] MEDS: HEPARIN SOD 5,000 UNIT/0.5 ML VIAL SQ SCH (09:15)
[2022-04-23] MEDS: DIVALPROEX DELAY RELEASE 500 MG TAB PO SCH (09:15)
[2022-04-23] MEDS: VITAMIN B COMPLEX TAB PO SCH (09:15)
[2022-04-23] MEDS: DULoxetine HCL 60 MG CAP PO SCH (09:15)
[2022-04-23] MEDS: FLUTICASONE/VILANTEROL 200/25MCG 14 PUFFS/INHALER INH SCH (09:15)
[2022-04-23 10:15] VITALS: PULSE 74
--- NOTE | 2022-04-23 14:44 | Discharge Summary ---
Date of Service April 23, 2022 Admission HPI Per Admitting Provider This is a 66 y/o male with a PMH of frontotemporal dementia with psychosis, prostate cancer with recent complication of XRT, nonischemic cardiology with pacer/defibrillator in 2009 (now essentially nonfunctional per ), HTN, GERD, depression, Parkinson Disease, hyperlipidemia, COPD, and BPH who presents to the ED via EMS with weakness, confusion and worsening hematuria. History obtained from the pt's at the beside as pt unable to provide any history at present due to dementia and confusion. Pt was admitted to [facility] 02/23-02/25/22 with UTI and weakness. Treated with ceftriaxone, saw PT/OT and was discharged home with home services. However, pt's reports that he was persistently weak after discharge so she advocated for rehab to help with deconditioning. He was finally admitted to [facility] 04/03-04/11 and received PT/OT with improvement. He was walking 250 ft with his walker upon discharge. He seemed to do well initially at home but today dramatically worsened again. reports that this morning he couldn't even sit on the toilet because he is so weak. She reports that his urine is light pink at baseline but last night when she collected a urine specimen for [facility], it was dark red, which is unusual for him. Extreme difficulty urinating this morning as well. He has some trouble swallowing pills but otherwise tolerates a regular diet. At baseline, he is aware of the year but not the month or day. He is not always oriented to place. Pt's is working to arrange a palliative care consultation as an outpatient with potential transition to hospice if that is what palliative care recommends. Outpatient records were extensively reviewed for recent history including notes from [facility]. NOTE: Pt goes by "Al" Admission Exam Per Admitting Provider Constitutional: comfortable; no acute distress sleeping but arousable - answers to his name Neck: trachea midline Respiratory: no respiratory distress and no labored breathing Auscultation: lungs clear to auscultation bilaterally; no rales, no rhonchi and no wheezes Cardiovascular: Rate/Rhythm: regular rate and regular rhythm Extremities: + edema (trace LE) AICD/PPM noted left upper chest Gastrointestinal (Abdomen): Inspection/Auscultation: normal bowel sounds; abdomen not distended Percussion/Palpation: + abdomen tender and abdomen soft Musculoskeletal: Head/Neck/Chest: normocephalic, head atraumatic and neck supple Skin: no jaundice Neurologic: moves all extremities Psychiatric: Orientation: oriented to pers Principal Diagnosis Confusion, weakness, abnormal UA Discharge Exam General: Sitting comfortably in bed, not in distress, on room air HEENT: EOMI, DENIS, MMM Chest: Clear breath sounds bilaterally, no wheezes or crackles CVS: Regular rate and rhythm, normal heart sounds, no murmur Abdomen: Soft, non tender, not distended, normal bowel sounds Neuro: Awake, alert, conversing ok. Stable compared to yesterday- no significant change noted. Extremities: No cyanosis, clubbing or edema Discharge Data Allergies Allergy/AdvReac Type Severity Reaction Status Date / Time latex Allergy Intermediate RASH Verified 04/15/22 16:05 haloperidol AdvReac Intermediate PSYCHOSIS Verified 04/15/22 16:05 lactose AdvReac Intermediate GI UPSET Verified 04/15/22 16:05 WITH MILK PRODUCTS midazolam AdvReac Intermediate PSYCHOSIS Verified 04/15/22 16:05 risperidone AdvReac Intermediate HALLUCINATI Verified 04/15/22 16:05 ON Consultations 04/15/22 16:02 ED Decision to Admit Stat 04/15/22 18:27 Consult Palliative Care Routine 04/18/22 12:18 Consult Urology Routine Ordered Studies 04/15/22 14:14 CT abd pelvis IV con only Stat CT head/brain wo con Stat Laboratory Results WBC 5.70 K/uL (4.8-10.8) 04/19/22 06:31 RBC 4.32 M/uL (4.7-6.1) L 04/19/22 06:31 Hgb 13.1 g/dL (14.0-18.0) L 04/23/22 06:12 Hct 39.8 % (42-52) L 04/23/22 06:12 MCV 97.5 fL (80-100) 04/19/22 06:31 MCH 32.2 pg (25-34) 04/19/22 06:31 MCHC 33.0 g/dL (32-36) 04/19/22 06:31 RDW Std Deviation 49.9 fL (36.4-46.3) H 04/19/22 06:31 RDW Coeff of Gabi 13.9 % (11.5-14.5) 04/19/22 06:31 Plt Count 186 K/uL (130-400) 04/19/22 06:31 MPV 8.7 fL (7.4-10.4) 04/19/22 06:31 Immature Gran % (Auto) 0.4 % 04/16/22 08:23 Neut % (Auto) 52.9 % 04/16/22 08:23 Lymph % (Auto) 19.8 % 04/16/22 08:23 Sawyer % (Auto) 14.6 % 04/16/22 08:23 Eos % (Auto) 12.1 % 04/16/22 08:23 Baso % (Auto) 0.2 % 04/16/22 08:23 Neut # (Auto) 2.84 K/uL (1.4-6.5) 04/16/22 08:23 Lymph # (Auto) 1.06 K/uL (1.2-3.4) L 04/16/22 08:23 Sawyer # (Auto) 0.78 K/uL (0.11-0.59) H 04/16/22 08:23 Eos # (Auto) 0.65 K/uL (0-0.5) H 04/16/22 08:23 Baso # (Auto) 0.01 K/uL (0-0.2) 04/16/22 08:23 Immature Gran # (Auto) 0.02 K/uL (0.00-0.02) 04/16/22 08:23 PT 11.5 Seconds (9.0-12.0) 04/15/22 14:20 INR 1.1 (0.9-1.1) 04/15/22 14:20 APTT 36.3 Seconds (21.0-31.0) H 04/15/22 14:20 PTT Ratio 1.3 04/15/22 14:20 Sodium 143 mmol/L (136-145) 04/23/22 06:12 Potassium 4.5 mmol/L (3.5-5.1) 04/23/22 06:12 Chloride 107 mmol/L (98-107) 04/23/22 06:12 Carbon Dioxide 29 mmol/L (21-32) 04/23/22 06:12 Anion Gap 7 (3-11) 04/23/22 06:12 BUN 31 mg/dl (6-23) H 04/23/22 06:12 Creatinine 0.82 mg/dl (0.6-1.4) 04/23/22 06:12 Est Cr Clr Drug Dosing 84.6 ml/min 04/23/22 06:12 Est GFR ( Amer) 106.1 ml/min 04/23/22 06:12 Est GFR (Non-Af Amer) 91.5 ml/min 04/23/22 06:12 BUN/Creatinine Ratio 37.8 (10-20) H 04/23/22 06:12 Glucose 83 mg/dl (70-99(Fasting)) 04/23/22 06:12 Lactate 1.2 mmol/L (0.4-2.0) 04/15/22 14:20 Calcium 9.1 mg/dl (8.5-10.1) 04/23/22 06:12 Phosphorus 4.1 mg/dl (2.5-4.9) 04/17/22 05:19 Magnesium 1.8 mg/dl (1.7-2.4) 04/18/22 05:46 Total Bilirubin 0.4 mg/dl (0.2-1.0) 04/15/22 14:20 AST 13 U/L (13-39) 04/15/22 14:20 ALT 6 U/L (7-52) L 04/15/22 14:20 Alkaline Phosphatase 49 U/L (34-104) 04/15/22 14:20 Troponin I High Sens 4.1 pg/ml (0-20) 04/15/22 14:20 Total Protein 5.8 gm/dl (6.0-8.3) L 04/15/22 14:20 Albumin 3.4 gm/dl (3.4-5.0) 04/15/22 14:20 Globulin 2.4 gm/dl (2.5-4.0) L 04/15/22 14:20 Albumin/Globulin Ratio 1.4 (0.9-2) 04/15/22 14:20 Procalcitonin < 0.05 ng/ml (0-0.5) 04/15/22 14:20 Urine Color Yellow 04/15/22 14:26 Urine Appearance Turbid (Clear) A 04/15/22 14:26 Urine pH 7.0 (4.5-7.5) 04/15/22 14:26 Ur Specific Jordan 1.010 (1.000-1.030) 04/15/22 14:26 Urine Protein 2+ (Negative) H 04/15/22 14:26 Urine Glucose (UA) Negative (Negative) 04/15/22 14:26 Urine Ketones Negative (Negative) 04/15/22 14:26 Urine Blood 3+ (Negative) H 04/15/22 14:26 Urine Nitrite Negative (Negative) 04/15/22 14:26 Urine Bilirubin Negative (Negative) 04/15/22 14:26 Urine Urobilinogen Negative (Negative) 04/15/22 14:26 Ur Leukocyte Esterase 3+ (Negative) H 04/15/22 14:26 Urine WBC (Auto) >30 /hpf (0-5) H 04/15/22 14:26 Urine RBC (Auto) 10-30 /hpf (0-4) H 04/15/22 14:26 U Hyaline Cast (Auto) 0 /lpf (0-5) 04/15/22 14:26 U Epithel Cells (Auto) 0-5 /lpf (0-5) 04/15/22 14:26 Urine Bacteria (Auto) Negative (Negative) 04/15/22 14:26 Urine Yeast Not Reportable 04/15/22 14:26 SARS-CoV-2 (PCR) NEGATIVE (Negative) 04/15/22 14:15 Influenza Type A (PCR) Negative (Neg) 04/15/22 14:15 Influenza Type B (PCR) Negative (Neg) 04/15/22 14:15 RSV (RT-PCR) Negative (Neg) 04/15/22 14:15 SARS-CoV-2, RNA, NAAT NEGATIVE (NEGATIVE) 04/23/22 Unknown Impressions Abdomen/Pelvis CT 04/15/22 14:[address] WITH IV CONTRAST CT DOSE: 330.23 mGy.cm HISTORY: Generalized abdominal pain. Sepsis. TECHNIQUE: Multiaxial CT images of the abdomen and pelvis were performed following the use of intravenous contrast. A dose lowering technique was utilized adhering to the principles of ALARA. COMPARISON STUDY: Abdomen and pelvis CT 02/23/2022. FINDINGS: The lung bases are clear. No pneumoperitoneum. No pneumatosis. There are healing left anterior sixth through ninth rib fractures pacemaker wires are noted. Bilateral fat-containing inguinal hernias are again noted. There is moderate to severe bladder wall thickening with adjacent fat stranding/edema. This has progressed in the interval and is consistent with a cystitis. Trace presacral edema is also noted. Multiple bilateral renal and hepatic hypodense lesions are again noted. These favor cysts. There are few punctate bilateral renal calculi. No ureteral calculi. No hydronephrosis. Mild bilateral perinephric edema which is likely chronic. 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 This remains unchanged. The g allbladder and adrenal glands are unremarkable. The pancreas enhances normally. A subcentimeter hypodense lesion within the spleen is too small to characterize. No retroperitoneal lymphadenopathy. Moderate calcified plaque within the normal caliber abdominal aorta. No bowel wall thickening or obstruction. Normal appendix. IMPRESSION: 1. Moderate to severe bladder wall thickening with surrounding fat stranding/edema. This has progressed in the interval and likely represents a cystitis. Recommend correlation with urinalysis. 2. No bowel wall thickening or obstruction. 3. Normal appendix. 4. Punctate bilateral renal calculi. No ureteral calculi. No hydronephrosis. 5. Healing left anterior rib fractures. No acute fractures identified. ACT 112: Negative or not required by law. Electronically signed by: Kevon Haji M.D. 04/15/2022 3:47 PM Chest X-Ray 04/15/22 14:14 XR chest 1V portable HISTORY: SEPSIS COMPARISON: Chest 02/23/2022. FINDINGS: No pneumothorax. No pleural effusions. The lungs are clear. The heart is normal in size. Left-sided pacemaker/defibrillator is again noted. IMPRESSION: No acute process. ACT 112: Negative or not required by law. Electronically signed by: Kevon Haji M.D. 04/15/2022 3:[address] 04/15/22 14:[address] DOSE: 773.57 mGy.cm HISTORY: fall TECHNIQUE: Multiaxial CT images of the head were performed without the use of intravenous contrast. Automated exposure control was utilized for this study. A dose lowering technique was utilized adhering to the principles of ALARA. Comparison: Head CT 02/23/2022. Findings: The paranasal sinuses and mastoid air cells are clear. The calvarium and skull base are intact. There is no mass, hematoma, midline shift, acute infarct. White matter hypodensity is nonspecific but suggestive of microvascular ischemic change. The ventricles and sulci demonstrate mild age-related involutional changes. Impression: No significant change compared to the prior study. No acute intracranial abnormality. ACT 112: Negative or not required by law. Electronically signed by: Kevon Haji M.D. 04/15/2022 3:51 PM Hospital Course (1) Abnormal urinalysis: (2) Hematuria: Abnormal UA- likely from hematuria and radiation cystitis, urine clx negative and s/p antibiotic course Pt's reports ongoing issues with urinary symptoms since pt completed XRT at the end of January - increased hematuria and difficulty with urination over the last 24 hours [employer]. Ad[facility] to [facility] telemetry due to hypotension on presentation - responded to IVF. Admitting procal and lactate wnl UA on presentation was abnormal, however urine clx showed no growth, blood clx negative. He is s/p ceftriaxone course which was completed prior to my resuming care. He looks stable and clinically the same to me today compared to yesterday. No fever, vitals stable. I was informed by RN today that his thinks he might be brewing another UTI however nothing clinically to suggest so and he is status post antibiotic course and does not have any indwelling catheter. Recommended to monitor clinically at the rehab and if concerns, repeating UA and clx and treating as indicated- this will be passed on to the SNF medical staff by RN. Hematuria- resolved. H& H remains stable. Seen by urology. Suspected due to radiation cystitis - Recommended OP follow up with uro for hematuria work up including cystoscopy- Relayed to over the phone- states she already knows about it Weakness: Likely multifactorial. Continue fall precautions - PT recommended SNF- being discharged to [facility] Confusion:/Metabolic encephalopathy- seems resolved. seems to be at baseline. Frontotemporal dementia with behavioral disturbance: Pt's dementia is worsening per . His has realistic expectations of the anticipated clinical course - she reports that she has been trying to arrange outpatient palliative care evaluation and possible hospice if that is recommended. Seen by palliative care 04/08. Per palliative note ' He does have a POLST form which indicates no CPR, comfort measures only. She does want antibiotics at this time and does not want aggressive measures for his care but would like for him to have rehab again after this hospital stay to reach his full potential and see if he is able to go fishing. She is interested in pursuing [employer] [facility] [facility] placement for him. I offered a family meeting with her and the children to facilitate discussion about this. She would prefer to talk with them first." Other chronic medical conditions: Parkinsonism, prostate cancer [completed radiation 2 months ago], HTN, HLD, GERD, cardiomyopathy I spoke to his over the phone from patient room and discussed discharge plan. Patient is stable for discharge and anxious to get discharged. Total Time Total Time Spent Total Time Spent (In Minutes): 40 Discharge Plan Discharge Items Patient Disposition: Transfer Group Home Fac Reason For Visit: UTI, CONFUSION Discharge Diagnosis: Abnormal UA, confusion, weakness Activity: Resume your previous activity Non-emergency contact: Primary Care Provider Call non-emergency contact if: you have any medication questions, your symptoms worsen, your pain is worsening and you have a fever Follow-up/Referrals: Armani Chen MD [Primary Care Provider] - (Date & Time 04/24/2022 11:00 AM Provider Abril Suggs MD Department General Internal Medicine [facility] ) Diet: Heart Healthy and Lactose Intolerant Diet Texture: Easy to Chew Addtl Attending Provider Instructions: We have not changed any of your medications You were here for blood in urine which could be from the radiation treatment. Recommend follow up with your urology for further work up including cystoscopy Your urine infection has been treated. Follow up with your family doctor in a week Pending Studies at Discharge: No Stand-Alone Forms: My [facility] Skilled Items Patient informed of condition?: Yes DNR: Yes Discharge Level of Care: Skilled Communicable Disease: No Discharge Prognosis: Stable Lines: None Urinary Catheter: No Medications and DC Order Prescriptions: Continued vitamin B complex [B Complex-Vitamin B12] Tablet 1 tab PO DAILY RF: 0 magnesium oxide 400 mg magnesium capsule 400 mg PO DAILY RF: 0 metoprolol succinate 25 mg tablet extended release 24 hr 25 mg PO QPM RF: 0 riboflavin (vitamin B2) 400 mg tablet 400 mg PO DAILY RF: 0 zinc gluconate 50 mg tablet 50 mg PO DAILY RF: 0 albuterol sulfate [Ventolin HFA] 90 mcg/actuation HFA aerosol inhaler 2 puff inhalation Q4H PRN (Reason: Shortness Of Breath Or Wheezing) RF: 0 metoprolol succinate 50 mg Tablet Extended Release 24 Hr 50 mg PO BID RF: 0 atorvastatin 20 mg Tablet 20 mg PO HS RF: 0 clonazepam 1 mg Tablet 1 mg PO HS RF: 0 gabapentin 100 mg Capsule 200 mg PO HS RF: 0 omeprazole 20 mg Capsule,Delayed Release(Dr/Ec) 20 mg PO DAILY RF: 0 divalproex [Depakote] 500 mg tablet,delayed release (DR/EC) 1,000 mg PO AMHS RF: 0 duloxetine 60 mg capsule,delayed release(DR/EC) 60 mg PO QAM RF: 0 Advair HFA 115-21 mcg/actuation HFA aerosol inhaler 2 inh INHALATION BID RF: 0 Discharge Orders: Discharge Order (Routine); Ordered 04/23/22 Ordered By: Ishaan Hodge Admission Data Admit Date/Time: 04/15/22 16:50 Attending Provider: Ishaan Hodge Admit Provider: Jelani Ambrosio Primary Care Provider: Armani Chen Other Providers: Jelani Ambrosio ; Vanessa Escobedo ; Colin Ball ; [facility] ; [facility] Other Interventions: Discharge Summary Assessment (RN) Last Done: 04/23/22 10:11
== END 2022-04-23 16:53 | DRG 689 ==
LOC: ED 13:58 → 2N 16:50 → SUATTDRO 16:50 → 2N 18:00 → 3W 04-19 18:36